=== PATIENT | female | born 1945 | race Caucasian/White ===

== ENCOUNTER 2017-06-29 11:53 | Outpatient (CLI) | payer MEDICARE, OTHER ==
--- NOTE | 2017-06-29 14:21 | MMO ---
BILATERAL SCREENING MAMMOGRAM: INDICATION: Annual exam. COMPARISON: Previous exam dated 06/08/16 and 04/11/13. FINDINGS: The interpretation of this exam was assisted with computer-aided detection. The breast parenchyma is heterogeneously dense. There are benign-appearing calcifications seen within both breasts. No new suspicious mass, cluster of microcalcifications, or area of architectural distortion is eviden t. IMPRESSION: BI-RADS category 2 - benign. Recommend routine annual mammographic screening. POS: [facility]
== END 2017-06-29 11:54 | disposition home or self-care (01) ==
LOC: SCSMAMMO 11:53
PROVIDERS: ATTEND Obstetrics & Gynecology
DX: Z12.31 Encounter for screening mammogram for malignant neoplasm of breast (principal)
CPT/HCPCS: 77067; G0202

== ENCOUNTER 2017-09-20 09:13 | Outpatient (CLI) | payer MEDICARE ==
--- NOTE | 2017-09-20 12:52 | MRI ---
CERVICAL SPINE MRI WITHOUT CONTRAST: 09/20/2017 HISTORY: Neck pain radiating down the right shoulder. History of cervical spine fusion. COMPARISON: None available. TECHNIQUE: Multiplanar, multisequence MR imaging of the cervical spine is provided without contrast. FINDINGS: Anterior diskectomy and fusion hardware is present at the C5-C6 level. The sagittal STIR imaging demonstrates no focal area of osseous marrow edema. C2-C3: Tiny central disk protrusion with no associated central canal stenosis. No neural foraminal stenosis is noted on either side. C3-C4: There is disk space narrowing, disk desiccation, and mild disk bulge, with no significant jeremy tral canal stenosis. There is mild facet hypertrophy on the left with no significant neural foramina l stenosis on either side. C4-C5: There is disk space narrowing, disk desiccation, and mild disk bulge, with no significant jeremy tral canal stenosis. Artifact from hardware slightly limits assessment of the neural foramina. No s ignificant neural foraminal stenosis is noted on the right. There is questionable mild left neural f oraminal stenosis on the basis of uncovertebral osteophyte formation. C5-C6: Facet and uncovertebral osteophyte formation on the left causing a mild to moderate degree of left neural foraminal stenosis. No significant central canal or right neural foraminal stenosis. C6-C7: There disk space narrowing and mild anterior osteophyte formation with disk desiccation and m ild disk bulge. No significant central canal stenosis. Mild left neural foraminal stenosis is noted on the basis of facet and uncovertebral osteophyte formation. No significant right neural foraminal stenosis. C7-T1: No significant central canal or neural foraminal stenosis. No focal area of abnormal signal intensity identified within the cervical cord. IMPRESSION: Postoperative and degenerative changes within the cervical spine, as above. POS: OFF
== END 2017-09-20 09:14 | disposition home or self-care (01) ==
LOC: SCSMRI 09:13
PROVIDERS: ATTEND Anesthesiology Pain Medicine
DX: M47.22 Other spondylosis with radiculopathy, cervical region (principal); Z98.890 Other specified postprocedural states
CPT/HCPCS: 72141

== ENCOUNTER 2017-10-18 09:04 | Outpatient (CLI) | payer MEDICARE ==
--- NOTE | 2017-10-19 10:12 | PRG ---
DATE OF SERVICE: 10/19/2017 RENAL MEDICINE SUBJECTIVE: The patient has no chest pain, shortness of breath. She is wanting to go home. Yesterday, spironolactone was placed on hold due to the worsening renal function. She was empiricall y given volume, but this was stopped due to some swelling of the hands. Her creatinine has stabilize d today. No complaints of chest pain or shortness of breath. PHYSICAL EXAMINATION: VITAL SIGNS: Blood pressure 180/83 - before meds, heart rate 83, respiratory rate 22, temperature 97 .7, pulse ox 94%. GENERAL: Awake, alert, sitting comfortable. SKIN: Adequate turgor. HEENT: Slightly pale conjunctivae, anicteric sclerae. NECK: No neck mass, no carotid bruits, no JVD. CHEST: No deformities. LUNGS: Clear breath sounds. HEART: Normal sinus rhythm. No murmur, no gallops, no rubs. ABDOMEN: Globular, soft, nontender, no masses. EXTREMITIES: No edema, no deformities. MEDICATIONS: Medications of 10/19/2017 reviewed. LABORATORY DATA: Laboratories of 10/19/3017; hemoglobin 7.6, potassium 4.1, BUN 46, creatinine 2.44. ASSESSMENT AND PLAN: 1. Acute kidney injury/chronic renal failure, stabilizing renal function. Again, there is a prerena l component. I had a long discussion with the patient and her daughter regarding increasing p.o. int liz. 2. Anemia. Continue weekly Epogen. We will set up Hematology appointment for Procrit check with [facility] patient. 3. Hypertension. Continue current blood pressure meds. If renal function continues to remain stabl e, we will reintroduce spironolactone as an outpatient. From renal point of view, she can be discharged. We will notify PCP. The patient to follow up at [facility].
--- NOTE | 2017-10-19 10:45 | MRI ---
MRI LUMBAR SPINE WITH AND WITHOUT CONTRAST: Date: 10/18/17 HISTORY: Post laminectomy syndrome. COMPARISON: 03/05/07. TECHNIQUE: MRI lumbar spine is performed with and without intravenous Gadolinium administration. Multisequential , multiplanar imaging is performed. FINDINGS: Appropriate T1 marrow signal intensity of the lumbar vertebra. Lumbar spine vertebral body height is maintained. There is no fracture. No significant STIR hyperintensity to suggest edema or ligamentous injury. There is no evidence of abnormal enhancement with regards to the vertebral bodies. No abnorma l enhancement in the thecal sac. Conus medullaris terminates at the inferior aspect of L1. T2 hyperintensities in the left and right renal pelvis may represent small parapelvic cysts. T12-L1: No significant central canal stenosis or foraminal narrowing. L1-L2: Adequate disc hydration. No significant central canal stenosis or foraminal narrowing. L2-L3: Adequate disc hydration. No significant central canal stenosis or foraminal narrowing. L3-L4: Adequate disc hydration. No significant central canal stenosis or foraminal narrowing. L4-L5: Desiccation with mild loss of disc space height. No high grade central canal stenosis. No high grade foraminal narrowing. L5-S1: Desiccation with moderate loss of disc space height. Minimal central disc bulge. No high grade centra l canal stenosis. No high grade foraminal narrowing. Left hemilaminectomy defect is identified. Minim al scar tissues in the postcontrast changes. There is evidence of enhancing scar tissue in the left s ubarticular zone encompassing the traversing left S1 nerve root. IMPRESSION: 1. Postsurgical changes as above. Enhancing scar tissue in the left subarticular zone at L5-S1. 2. No high grade central canal stenosis or high grade foraminal narrowing. POS: [facility]
== END 2017-10-18 09:05 | disposition home or self-care (01) ==
LOC: SCSMRI 09:04
PROVIDERS: ATTEND Anesthesiology Pain Medicine
DX: M96.1 Postlaminectomy syndrome, not elsewhere classified (principal); Z98.890 Other specified postprocedural states
CPT/HCPCS: 72158; 82565

== ENCOUNTER 2018-02-13 10:02 | Inpatient (IN) | payer MEDICARE ==
[2018-02-13] MEDS ORDERED: Sodium Chloride 0.9% 100 ML ONE (10:40)
[2018-02-13] MEDS ORDERED: cefTRIAXone\\ROCEPHIN 2 GM VIAL ONE (10:40)
[2018-02-13 10:45] LABS: Hemoglobin 14.4 g/dL (12.0-16.0); Mean Corpuscular HGB CONC 33.7 g/dL (32.0-36.0); Mean Corpuscular Hemoglobin 29.2 pg (27.0-31.0); Mean Corpuscular Volume 86.8 fL (78.0-98.0); Mean Platelet Volume 7.4 fL (7.4-10.4); Platelet Count 178 thou/uL (130-400); RBC Distribution Width 11.5 % (11.5-14.5); Red Blood Cell (RBC) Count 4.93 mill/uL (4.20-5.40); White Blood Cell (WBC) Count 9.2 thou/uL (4.8-10.8)
--- NOTE | 2018-02-13 10:57 | RAD ---
CHEST 1 VIEW PORTABLE: HISTORY: A 72-year-old female with a history of urinary tract infection 10 days ago on antibiotics with vomiti ng and body aches which started yesterday. COMPARISON: 06/01/03. FINDINGS: Less than optimal inspiration with some bilateral vascular crowding with slight blunting in the costo phrenic angles and increased markings in the bases which may only be related to the decreased inspira tion, although could represent some minimal early bibasilar subsegmental atelectasis and/or atypical pneumonitis and possible small pleural effusions. Correlate clinically. Consider short-term followu p study with upright PA and lateral whenever the patient can undergo that study. IMPRESSION: Poor inspiration with minimal blunting in the costophrenic angles and increased markings in the bases , possibly just poor inspiratory effort versus mild or early bibasilar subsegmental atelectasis and/o r atypical pneumonitis with small pleural effusions. POS: [facility]
[2018-02-13 10:58] LABS: ALT (SGPT) 401 U/L (8-55); AST (SGOT) 475 U/L (5-34); Albumin 4.5 g/dL (3.4-4.8); Alkaline Phosphatase 94 U/L (40-150); Anion Gap 17 mmol/L (10-20); BUN (Urea Nitrogen) 18 mg/dL (9.8-20.1); Bilirubin, Total 1.1 mg/dL (0.2-1.2); Calc. Creatinine Clearance 0 mL/min (70-130); Calcium 9.2 mg/dL (7.8-10.44); Carbon Dioxide 24 mmol/L (23-31); Chloride 96 mmol/L (98-107); Estimated GFR-MDRD 30; Globulin 2.5 g/dL (2.4-3.5); Glucose 148 mg/dL (83-110); Potassium 3.2 mmol/L (3.5-5.1); Sodium 134 mmol/L (136-145)
[2018-02-13 11:14] LABS: Band 35 % (5-11); Lymphocytes 1 % (21-51); MDiff Complete? YES; Metamyelocyte 2 % (0-0); Monocytes 3 % (0-10); Neutrophil 57 % (42-75); PLT Morphology Comment Appears Adequate; RBC Morphology Normal; Reactive Lymphocytes 2 % (0-10); Vacuoles SLIGHT
--- NOTE | 2018-02-13 11:17 | CT ---
CT ABDOMEN AND PELVIS WITHOUT CONTRAST STONE PROTOCOL: HISTORY: Fever. Urinary tract infection. COMPARISON: None. FINDINGS: Mild atelectatic changes in the lung bases. No pericardial effusion. Prior cholecystectomy. There is a 2 mm calculus superior pole right kidney. A 2 mm calculus inferio r pole right kidney. Punctate calculus interpolar left kidney. No distal ureteral calculi are prese nt. No hydroureteral nephrosis. No perinephric stranding. The noncontrast evaluation of the liver and spleen are unremarkable. No dilated loops of large or sm all bowel. Moderate diverticular disease of sigmoid colon without active inflammation. There appears to be pelvic floor prolapse. Moderate facet arthrosis of the lower lumbar spine. Mode rate degenerative disease at L5-S1. IMPRESSION: 1. Bilateral nonobstructing renal calculi. No evidence of obstructive uropathy. No secondary evide nce for recently passed stone. 2. No acute inflammatory process in the abdomen or pelvis. 3. Moderate diverticular disease of the sigmoid colon without active inflammation. 4. Chronic pelvic floor prolapse. POS: [facility]
[2018-02-13 11:25] LABS: CKMB 0.3 ng/mL (0-6.6); Troponin I Less than 0.010 ng/mL (< 0.028)
[2018-02-13] MEDS ORDERED: Acetaminophen 500 MG TAB ONE (11:25)
[2018-02-13 11:38] LABS: Bilirubin Negative (Negative); Blood, Urine Trace (Negative); Glucose, Urine (Dipstick) Negative (Negative); Nitrite Negative (Negative); Urobilinogen 0.2 mg/dL (0.2-1.0)
[2018-02-13 11:41] LABS: Clarity Hazy (Clear)
[2018-02-13 11:42] LABS: Leukocyte Trace (Negative); Protein, Urine (Dipstick) Negative (Neg-Trace); Specific Gravity, Urine 1.021 (1.002-1.036)
[2018-02-13] MEDS ORDERED: SODIUM CHLORIDE 0.9% IVPB SCH (11:45)
[2018-02-13] MEDS ORDERED: VANCOMYCIN HCL IVPB SCH (11:45)
[2018-02-13 11:57] LABS: Bacteria/HPF None Seen HPF (None Seen); Crystals/HPF 1+ AMORPH PHOS HPF (Negative); Hyaline Casts/LPF 4-6 HYALINE CAST LPF (0-3 Hyaline); RBC/HPF 0-3 HPF (0-3); Squamous Epithelial 0-3 HPF (0-3); Transitional Epithelial 0-3 HPF (0-3)
[2018-02-13] MEDS ORDERED: Vancomycin HCl 750 GM in Sodium Chloride 0.9% 250 ML 250 ML IVPB SCH ×2 (12:00→12:15)
[2018-02-13] MEDS ORDERED: Vancomycin HCl 750 MG in Sodium Chloride 0.9% 250 ML 250 ML IVPB SCH ×3 (12:15→15:30)
[2018-02-13] MEDS ORDERED: Bisacodyl 5 MG TAB PO PRN (13:24)
[2018-02-13] MEDS ORDERED: Acetaminophen 650 MG Suppository PR PRN (13:24)
--- NOTE | 2018-02-13 13:44 | HP ---
PRIMARY CARE PHYSICIAN: Dr. Sanjeev Ashby CHIEF COMPLAINT: Feeling unwell. HISTORY OF PRESENT ILLNESS: Ms. Chen is a pleasant 72-year-old lady who was seen at [facility] on 02/13/2018. Her mother approximately 4 weeks ago. Three weeks ago, she developed dysuria. She has been maynor ing Uribel since then. She continued to have dysuria. One week ago, she had urine cultures done. Y esterday, she was contacted by her primary care provider's office and advised to start Macrobid. She started Macrobid yesterday morning. Yesterday evening, she vomited twice. She is unsure if the Mac robid did not come out. She also had diarrhea 2 days ago, but none since then. Last night, she felt feverish as well as had chills, vomited as described earlier and felt generalize d weakness. She reports having body aches all over. REVIEW OF SYSTEMS: All other systems reviewed and found to be negative. PAST MEDICAL HISTORY: Nephrolithiasis, hypothyroidism, dyslipidemia and neuropathy. PAST SURGICAL HISTORY: Cholecystectomy, hysterectomy, and surgery of cervical and lumbar spine. PSYCHIATRIC HISTORY: Anxiety and depression. FAMILY HISTORY: Significant for heart disease in both parents. SOCIAL HISTORY: No history of tobacco use, alcohol use or recreational drug use. CODE STATUS: I discussed her code status. She is FULL CODE. ALLERGIES: CLINDAMYCIN, CODEINE, ERYTHROMYCIN, METRONIDAZOLE, MORPHINE and PENICILLIN. Her allergic reaction to penicillin is a rash. CURRENT MEDICATIONS: Atorvastatin 40 mg daily, clonazepam 0.75 mg 3 times a day, gabapentin 300 mg a t bedtime, hydrochlorothiazide 25 mg daily, omeprazole 40 mg daily, Synthroid 50 mcg daily, duloxetin e 60 mg daily. PHYSICAL EXAMINATION: GENERAL: Ms. Chen is sleepy, but arousable, appears tired. VITAL SIGNS: Blood pressure is 93/42, pulse 93, respiratory rate 23, and oxygen saturation 99% on 2 liters of oxygen. She was tachycardic earlier, with a pulse of 103. T-max in the emergency room is 101.5. EYES: No scleral icterus. No conjunctival pallor. ENT: Dry mucosal membranes, no oropharyngeal erythema or exudates. NECK: Supple, nontender. Trachea is midline. RESPIRATORY: Accessory muscles of breathing are not active. Chest wall movements are symmetric bila terally. LUNGS: Clear to auscultation without wheeze, rhonchi or crepitations. CARDIOVASCULAR: S1 and S2 are heard, regular. Peripheral pulses palpable. No carotid bruit, no per icardial rub. ABDOMEN: Soft, nontender, bowel sounds are heard, no hepatomegaly, no splenomegaly. NEUROLOGIC: Cranial nerves II-XII intact. Deep tendon reflexes 2+. MUSCULOSKELETAL: Power is 5/5 in all 4 extremities. SKIN: No rashes or subcutaneous nodules. LYMPHATIC: No cervical lymphadenopathy. PSYCHIATRIC: Normal mood, normal affect, the patient is oriented to person, place and time. DATABASE: Ms. Chen labs and investigations were reviewed. I reviewed her electrocardiogram, wh ich shows normal sinus rhythm, no ST changes to suggest an acute coronary syndrome. I also reviewed her chest x-ray, which did not show any pulmonary infiltrates. She has normal white count, elevated band neutrophils of 35%, normal hemoglobin, normal platelet coun t, decreased sodium of 134, decreased potassium of 3.2, elevated creatinine of 1.69, last known creat inine 0.80 on 11/08/2017, elevated lactic acid level of 6.3, elevated AST of 475, elevated ALT of 401 , normal total bilirubin, normal alkaline phosphatase, normal troponin I and a urinalysis that is pos itive for ketones, blood, trace leukocyte esterase, and 4-6 hyaline casts. Urine color is green. I obtained a urine culture and sensitivity report from her primary care provider. It is showing Ente rococcus faecalis that is of intermediate sensitivity to ciprofloxacin, sensitive to levofloxacin, li nezolid, nitrofurantoin, penicillin, tetracycline and vancomycin. ASSESSMENT AND PLAN: Ms. Chen is a pleasant 72-year-old lady who was seen at [facility] on 02/13/2018. Her problem list includes: 1. Severe sepsis. Ms. Chen is presenting with severe sepsis based on tachycardia, fever, bande ha, suspected source of infection in the urine and acute renal insufficiency. She will be admitted to the hospital for further management including intravenous hydration and antibiotics. 2. Urinary tract infection. The patient was started on nitrofurantoin at home, but has been unable to tolerate it secondary to vomiting. It is unclear if a urinary tract infection is only contributor to her sepsis. The patient will be started on vancomycin and meropenem. We will await urine and bl ood cultures. 3. Hypokalemia: We will replace potassium. 4. Hyponatremia: Mild, likely asymptomatic. 5. Acute kidney injury: Hydrate patient. Recheck creatinine level. 6. Abnormal liver function test: Isolated transaminitis, most likely secondary to rhabdomyolysis, g iven her history of bodyaches. We will check CK level. If CK is normal, will check abdominal ultras ound. Many thanks for allowing me to participate in your patient's care. Please feel free to contact me wi th any questions or concerns. LEVEL OF RISK: High. LEVEL OF COMPLEXITY: High.
[2018-02-13 14:52] VITALS: BMI 21.5
[2018-02-13 15:10] LABS: Lactic Acid 4.9 mmol/L (0.5-2.2)
[2018-02-13] MEDS ORDERED: Meropenem 1 GM in Sodium Chloride 0.9% 100 ML IVPB SCH (16:00)
[2018-02-13] MEDS: NS 0.9% w/ 20 MEQ KCL 1,000 ML/1,000 ML BAG IV SCH ×2 (16:20→23:49)
[2018-02-13] MEDS ORDERED: Albumin 5% 250 ML ONE (17:35)
[2018-02-13] MEDS: Hydrocortisone Sod Succ/PF 100 mg/2 ml Vial IVP SCH ×2 (17:44→23:49)
[2018-02-13] MEDS: Acetaminophen 325 MG TAB PO PRN (19:19)
[2018-02-13] MEDS ORDERED: Famotidine 20 MG TAB PO SCH (21:30)
[2018-02-13] MEDS ORDERED: Gabapentin 300 MG CAP PO SCH (21:30)
[2018-02-13] MEDS ORDERED: clonazePAM 0.5 MG TAB PO SCH (21:30)
[2018-02-14] MEDS: MEROPENEM 1 GM/50 ML 1 GM in Premix Bag 1 BAG IVPB SCH ×4 (00:15→23:27)
--- NOTE | 2018-02-14 02:53 | CON ---
DATE OF CONSULTATION: 02/13/2018 HISTORY OF PRESENT ILLNESS: A 72-year-old female with septic hypotension probably from UTI. Her hus band at the bedside along with the patient, who states that for at least 2 weeks she has been sick wi th dysuria and burning sensation; however, over the last 48 hours, condition got worse with abdominal pain, nausea, vomiting, loose stools, unable to walk. Temperature was markedly elevated. She went to see her primary care physician, apparently was told s he had E. coli and was given Macrobid. Unclear whether she will tolerate the Macrobid. In the ER, she has been hypotensive and was given multiple antibiotics in the ER including gentamicin , vancomycin, Rocephin, and now admitting doctor has prescribed meropenem and vancomycin. She remains hypotensive with a systolic of 84. She is very weak. She says she is still nauseated. Denies any coughing, chest pain, shortness of breath. She has never smoked. No prior history of TB, pneumonia, or bronchial asthma. PAST MEDICAL HISTORY: Pertinent otherwise for renal stones, some form of neuropathy, chronic pain, h ypothyroidism, hyperlipidemia. PAST SURGICAL HISTORY: Cervical surgery done in the past, cholecystectomy, hysterectomy. MEDICATIONS: Medicine from home includes duloxetine 40, gabapentin 600, Lipitor 40, Imitrex 100, Syn throid 50, HCTZ 25, Klonopin 0.5. ALLERGIES: Multiple, CODEINE, MORPHINE, CLINDAMYCIN, FLAGYL, PENICILLIN. SOCIAL HISTORY: She is a schoolteacher for 40 years. No tobacco or alcohol. REVIEW OF SYSTEMS: Otherwise, 10-point negative exam is noted. PHYSICAL EXAMINATION: VITAL SIGNS: Temperature is 99 at MICU, respirations 18, , pulse 92, blood pressure 86/60. CHEST: Minimal crackles without any wheezing. CARDIAC: Normal S1, S2. No gallops. ABDOMEN: Soft. EXTREMITIES: No edema. NEUROLOGIC: She is appropriate. LABORATORY DATA: Creatinine 1.6, was normal in the past. Lactic acid is 6.3. Sodium 134, potassium 3.2. White count , platelet count 178,000. IMPRESSION: 1. Sepsis syndrome, probably urinary tract infection. CAT scan showing presence of diverticular dis ease and nonobstructive renal calculi. 2. Renal failure over the last 3 months, probably prerenal. 3. Hypothyroidism. 4. Chronic pain. PLAN: I agree with meropenem and vancomycin adjusted for renal failure. I have added vitamin C, thi amine, and stress dose of steroids for her sepsis syndrome. Additional IV fluids. We will follow while in the MICU. This consultation note of 70 minutes, of which 50% in direct patient care.
[2018-02-14] MEDS: Hydrocortisone Sod Succ/PF 100 mg/2 ml Vial IVP SCH ×4 (05:32→23:27)
[2018-02-14 06:35] LABS: #Lymphocytes 0.2 thou/uL (1.20-3.40); #Neutrophils 2.9 thou/uL (1.40-6.50); %Eosinophils 0.6 % (0.0-10.0); %Lymphocytes 6.2 % (21.0-51.0); %Monocytes 1.4 % (0.0-10.0); %Neutrophils 91.8 % (42.0-75.0); Hemoglobin 10.5 g/dL (12.0-16.0); Mean Corpuscular HGB CONC 34.5 g/dL (32.0-36.0); Mean Corpuscular Hemoglobin 29.8 pg (27.0-31.0); Mean Corpuscular Volume 86.4 fL (78.0-98.0); Mean Platelet Volume 7.7 fL (7.4-10.4); PLT Morphology Comment Appears Decreased; Platelet Count 105 thou/uL (130-400); RBC Distribution Width 11.4 % (11.5-14.5); Red Blood Cell (RBC) Count 3.52 mill/uL (4.20-5.40); White Blood Cell (WBC) Count 3.2 thou/uL (4.8-10.8)
[2018-02-14 06:49] LABS: ALT (SGPT) 671 U/L (8-55); AST (SGOT) 584 U/L (5-34); Albumin 3.3 g/dL (3.4-4.8); Alkaline Phosphatase 126 U/L (40-150); Anion Gap 9 mmol/L (10-20); BUN (Urea Nitrogen) 21 mg/dL (9.8-20.1); Bilirubin, Total 0.9 mg/dL (0.2-1.2); Calc. Creatinine Clearance 49 mL/min (70-130); Calcium 6.6 mg/dL (7.8-10.44); Carbon Dioxide 25 mmol/L (23-31); Chloride 110 mmol/L (98-107); Estimated GFR-MDRD 57; Globulin 1.4 g/dL (2.4-3.5); Glucose 178 mg/dL (83-110); Magnesium 1.7 mg/dL (1.6-2.6); Phosphorus 1.9 mg/dL (2.3-4.7); Potassium 3.6 mmol/L (3.5-5.1); Protein, Total 4.7 g/dL (6.0-8.3); Sodium 140 mmol/L (136-145)
[2018-02-14] MEDS: Enoxaparin Sodium 30 MG/0.3 ML SYRINGE SC SCH (08:29)
[2018-02-14] MEDS: Famotidine 20 MG TAB PO SCH ×3 (08:30→20:38)
--- NOTE | 2018-02-14 08:57 | PRG ---
DATE OF SERVICE: 02/14/2018 This morning the patient is doing better. PHYSICAL EXAMINATION: VITAL SIGNS: Blood pressure has improved 122/60, sats 100% on room air, respirations 18, temperatur e 98. She is weak. CHEST: Chest reveals decreased breath sounds, no wheezing. CARDIAC: Normal S1, S2. No gallops. ABDOMEN: Soft, no masses. LABORATORY: Platelet count is 105. White count 3000, H&H 10 and 30. Urinary function has resolved . Lactic acid is 4.9, AST is 584. Cortisol level was 24. Bilirubin is normal. IMPRESSION: 1. Sepsis syndrome, probably urinary tract infection. 2. Hypertension, improved. 3. Diverticular disease. 4. Renal failure, resolved. 5. Abnormal liver function tests. PLAN: Sepsis protocol, steroids and vitamin C, B12 on board. Meropenem and vancomycin, adjust for r enal failure. I will follow. PT and supportive care.
[2018-02-14] MEDS: K-Phos Neutral 250 MG TAB PO SCH ×3 (09:45→17:03)
[2018-02-14] MEDS: NS 0.9% w/ 20 MEQ KCL 1,000 ML/1,000 ML BAG IV SCH ×2 (09:48→20:34)
[2018-02-14] MEDS: Vancomycin HCl 750 MG in Sodium Chloride 0.9% 250 ML 250 ML IVPB SCH (11:47)
[2018-02-14] MEDS ORDERED: Vancomycin HCl 750 MG in Sodium Chloride 0.9% 250 ML 250 ML IVPB SCH (12:00)
[2018-02-14] MEDS: Acetaminophen 325 MG TAB PO PRN ×2 (13:37→22:18)
[2018-02-14] MEDS ORDERED: Lidocaine 2% Jelly 5 ML TUBE TOP PRN (18:45)
[2018-02-14] MEDS ORDERED: Dextrose 50% Abboject 50 ML SYRINGE SLOW IVP PRN (18:48)
[2018-02-14] MEDS ORDERED: Dextrose 5% in Water 1,000 ML IV PRN (18:48)
[2018-02-14] MEDS ORDERED: HumaLOG 300 UNITS/3 ML VIAL SC PRN (18:48)
[2018-02-14] MEDS: Gabapentin 300 MG CAP PO SCH (20:34)
[2018-02-14] MEDS: clonazePAM 0.5 MG TAB PO SCH (20:36)
[2018-02-14] MEDS: Loperamide HCl 2 MG CAP PO PRN (22:18)
--- NOTE | 2018-02-14 23:43 | PDOC.PN ---
- Subjective Encounter Start Date: 02/14/18 Encounter Start Time: 17:00 Subjective: nsg notes rev, danielle ovn, overall feels significantly better. at -: bedside. endorses persistent diarrhea, worse with oral intake. wants -: her home regimen restarted. - Objective Vital Signs & Weight: Vital Signs (12 hours) Temp Pulse Pulse Pulse Resp BP BP 02/14/18 20:00 97.6 F 74 23 H 02/14/18 19:21 97.6 F 74 23 H 02/14/18 16:36 97.7 F 84 20 02/14/18 15:30 71 76 130/59 L 132/50 L 02/14/18 12:03 98.3 F 75 20 BP Pulse Ox 02/14/18 20:00 99 02/14/18 19:21 120/51 L 99 02/14/18 16:36 120/51 L 98 02/14/18 15:30 02/14/18 12:03 101/49 L 95 Weight Weight 127 lb I&O: 02/13/18 02/14/18 02/15/18 06:59 06:59 06:59 Intake Total 1750 1364 Output Total 800 700 Balance 950 664 Result Diagrams: 02/14/18 05:51 02/14/18 05:51 Additional Labs: Accuchecks 02/14/18 20:30 POC Glucose 151 H Phys Exam - Physical Examination Constitutional: NAD seated on the edge of the bed HEENT: PERRLA, moist MMs pale Respiratory: no wheezing, no rales, no rhonchi, clear to auscultation bilateral no conversational dyspnea Cardiovascular: RRR, no significant murmur, no rub Gastrointestinal: soft, non-tender, positive bowel sounds Musculoskeletal: pulses present Neurological: moves all 4 limbs Psychiatric: normal affect, A&O x 3 Dx/Plan - Plan cont current plan of care, plan discussed w/ family, continue antibiotics, out of bed/ambulate * severe sepsis * suspected secondary to UTI - pt had a positve UCx for E Coli o/p with her PCP and was initially started on macrobid * continue with empiric abx including coverage of potential ESBL, pending cx - did discuss with pt and her family initial cx results typically 48-72 hr may become available * stress dose steroids * apprec critical care c/s UTI * see above. pt with recurrent hx of UTI and would her o/p urologist notified * pt states she is on hctz to aid with prevention of renal stone formation ( has personl hx of frequent renal stone formation) - ok to resume this as long as SBP tolerates diarrhea * was present before with vomiting which pt attributed to her macrobid abx * currently w/o vomiting, only diarrhea * check for infectious process, no immodium until results available - this was d/w pt and her * supportive IVF as needed anxiety/ insomnia * resume home gabapentin and clonazepam as BP allows hypothyroidism * resume home regimen diet: as ulisses activity: as ulisses dvt ppx Review of Systems - Medications/Allergies Allergies/Adverse Reactions: Allergies Allergy/AdvReac Type Severity Reaction Status Date / Time codeine Allergy Mild Nausea Verified 02/13/18 14:35 morphine Allergy Mild Nausea Verified 02/13/18 14:35 clindamycin HCl Allergy Verified 02/13/18 14:35 [From Cleocin] clindamycin phosphate Allergy Verified 02/13/18 14:35 [From Cleocin] metronidazole [From Flagyl] Allergy Verified 02/13/18 14:35 Penicillins Allergy Verified 02/13/18 14:35 Medications: Current Medications Acetaminophen (Tylenol) 650 mg PO Q4H PRN PRN Reason: Headache/Fever or Pain Last Admin: 02/15/18 02:44 Dose: 650 mg Acetaminophen (Tylenol) 650 mg WA Q4H PRN PRN Reason: Headache/Fever or Pain Hydrocodone Bitart/Acetaminophen (Plains 7.5/325) 1 tab PO Q6H PRN PRN Reason: Pain Bisacodyl (Dulcolax) 10 mg PO DAILYPRN PRN PRN Reason: Constipation Clonazepam (Klonopin) 0.75 mg PO HS [facility] Last Admin: 02/14/18 20:36 Dose: 0.75 mg Dextrose/Water (Dextrose 50%) 25 gm SLOW IVP PRN PRN PRN Reason: Hypoglycemia Duloxetine HCl (Cymbalta) 60 mg PO DAILY [facility] Enoxaparin Sodium (Lovenox) 30 mg SC 0900 [facility] Last Admin: 02/14/18 08:29 Dose: 30 mg Famotidine (Pepcid) 20 mg PO BID [facility] Last Admin: 02/14/18 20:38 Dose: Not Given Gabapentin (Neurontin) 600 mg PO HS [facility] Last Admin: 02/14/18 20:34 Dose: 600 mg Glucagon (Glucagon) 1 mg IM PRN PRN PRN Reason: Hypoglycemia Hydrochlorothiazide (Hydrochlorothiazide) 25 mg PO DAILY [facility] Hydrocortisone Sodium Succinate (Solu-Cortef) 50 mg IVP Q6HR [facility] Stop: 02/20/18 18:01 Last Admin: 02/15/18 05:25 Dose: 50 mg Potassium Chloride/Sodium Chloride (Ns 0.9% W/ 20 Meq Kcl) 1,000 ml in 1,000 mls @ 100 mls/hr IV .Q10H [facility] Last Admin: 02/14/18 20:34 Dose: 1,000 mls Vancomycin HCl 750 mg/ Sodium (Chloride) 250 mls @ 250 mls/hr IVPB 1200 [facility] Last Admin: 02/14/18 11:47 Dose: 250 mls Ascorbic Acid 1,500 mg/ Sodium (Chloride) 53 mls @ 100 mls/hr IVPB Q6HR [facility] Last Admin: 02/15/18 05:25 Dose: 53 mls Thiamine HCl 200 mg/ Sodium (Chloride) 52 mls @ 100 mls/hr IVPB Q12HR [facility] Stop: 02/17/18 21:01 Last Admin: 02/14/18 20:37 Dose: 52 mls Meropenem 1 gm/ Device 50 mls @ 100 mls/hr IVPB 0800,1600,2359 [facility] Last Admin: 02/14/18 23:27 Dose: 50 mls Dextrose/Water (D5w) 1,000 mls @ 0 mls/hr IV .Q0M PRN; As Directed PRN Reason: Hypoglycemia Insulin Human Lispro (Humalog) 0 units SC .MILD SLIDING SCALE PRN PRN Reason: Mild Correctional Scale Levothyroxine Sodium (Synthroid) 50 mcg PO 0600 [facility] Last Admin: 02/15/18 05:25 Dose: 50 mcg Lidocaine HCl (Xylocaine 2%) 2 ml TOP BID PRN PRN Reason: Pain Loperamide HCl (Imodium) 2 mg PO PRN PRN PRN Reason: Diarrhea/Loose Stools Last Admin: 02/14/18 22:18 Dose: 2 mg Miscellaneous Medication (Pharmacy To Dose) 1 each IVPB ONE PRN PRN Reason: Pharmacy to dose Stop: 02/23/18 13:24 Pantoprazole Sodium (Protonix) 40 mg PO 2100 [facility] Last Admin: 02/14/18 20:35 Dose: 40 mg Phosphorus (Kphos Neutral) 250 mg PO TID-WM [facility] Last Admin: 02/14/18 17:03 Dose: 250 mg Sodium Chloride (Flush - Normal Saline) 10 ml IVF Q12HR [facility] Sodium Chloride (Flush - Normal Saline) 10 ml IVF PRN PRN PRN Reason: Saline Flush
[2018-02-15] MEDS: Acetaminophen 325 MG TAB PO PRN (02:44)
[2018-02-15] MEDS: Hydrocortisone Sod Succ/PF 100 mg/2 ml Vial IVP SCH ×3 (05:25→17:22)
[2018-02-15] MEDS: Levothyroxine Sodium 50 MCG TAB PO SCH (05:25)
[2018-02-15] MEDS: HYDROcodone/Acetaminophen 7.5/325 mg Tablet PO PRN ×3 (06:03→21:50)
[2018-02-15 06:20] LABS: #Lymphocytes 0.4 thou/uL (1.20-3.40); #Monocytes 0.1 thou/uL (0.11-0.59); %Basophils 0.3 % (0.0-1.0); %Eosinophils 0.2 % (0.0-10.0); %Lymphocytes 8.4 % (21.0-51.0); %Monocytes 2.7 % (0.0-10.0); %Neutrophils 88.4 % (42.0-75.0); Hemoglobin 10.2 g/dL (12.0-16.0); Mean Corpuscular HGB CONC 34.6 g/dL (32.0-36.0); Mean Corpuscular Hemoglobin 29.6 pg (27.0-31.0); Mean Corpuscular Volume 85.5 fL (78.0-98.0); Mean Platelet Volume 8.5 fL (7.4-10.4); Platelet Count 108 thou/uL (130-400); RBC Distribution Width 11.4 % (11.5-14.5); Red Blood Cell (RBC) Count 3.45 mill/uL (4.20-5.40); White Blood Cell (WBC) Count 4.5 thou/uL (4.8-10.8)
[2018-02-15 06:27] LABS: ALT (SGPT) 458 U/L (8-55); AST (SGOT) 193 U/L (5-34); Albumin 3.3 g/dL (3.4-4.8); Alkaline Phosphatase 102 U/L (40-150); Anion Gap 12 mmol/L (10-20); BUN (Urea Nitrogen) 13 mg/dL (9.8-20.1); Bilirubin, Total 0.4 mg/dL (0.2-1.2); Calc. Creatinine Clearance 68 mL/min (70-130); Calcium 7.1 mg/dL (7.8-10.44); Carbon Dioxide 21 mmol/L (23-31); Chloride 115 mmol/L (98-107); Estimated GFR-MDRD 80; Globulin 1.5 g/dL (2.4-3.5); Glucose 113 mg/dL (83-110); Magnesium 1.7 mg/dL (1.6-2.6); Protein, Total 4.8 g/dL (6.0-8.3); Sodium 145 mmol/L (136-145)
[2018-02-15 06:28] LABS: Potassium 2.9 mmol/L (3.5-5.1)
[2018-02-15] MEDS ORDERED: Potassium Chloride 40 MEQ in Premix Bag 1 BAG IVPB SCH (06:45)
[2018-02-15] MEDS: Potassium Chloride 20 MEQ in Premix Bag 1 BAG IVPB SCH ×2 (07:12→09:35)
[2018-02-15] MEDS ORDERED: Potassium Chloride 20 MEQ TAB PO SCH (08:45)
[2018-02-15] MEDS: Enoxaparin Sodium 30 MG/0.3 ML SYRINGE SC SCH (09:34)
[2018-02-15] MEDS: Hydrochlorothiazide 25 MG TAB PO SCH (09:34)
[2018-02-15] MEDS: Famotidine 20 MG TAB PO SCH ×2 (09:34→21:46)
[2018-02-15] MEDS: Loperamide HCl 2 MG CAP PO PRN (09:34)
[2018-02-15] MEDS: DULoxetine 60 MG CAP PO SCH (09:34)
[2018-02-15] MEDS: K-Phos Neutral 250 MG TAB PO SCH ×3 (09:34→16:48)
[2018-02-15] MEDS: MEROPENEM 1 GM/50 ML 1 GM in Premix Bag 1 BAG IVPB SCH ×2 (09:34→16:49)
[2018-02-15] MEDS: NS 0.9% w/ 20 MEQ KCL 1,000 ML/1,000 ML BAG IV SCH ×2 (09:35→10:11)
--- NOTE | 2018-02-15 10:08 | PRG ---
DATE OF SERVICE: 02/15/2018 This morning, she said she had some difficulty breathing, but denies any coughing or wheezing. X-ray done today shows slightly worsening left-sided infiltrate and pleural effusion, this may be non specific. Previous right-sided infiltrate is better. PHYSICAL EXAMINATION: VITAL SIGNS: Sats are 94% on 2 liters, temperature 98, blood pressure 124/52. I's and O's 3369 in, 1 80 out. CHEST: Chest revealed decreased breath sounds, no wheezing. CARDIAC: Normal S1-S2. No gallops. ABDOMEN: No masses. IMPRESSION: 1. Presumed sepsis, though all cultures are negative. 2. Urinary tract infection. 3. Diverticular disease. 4. Thrombocytopenia. 5. Renal failure, resolved. PLAN: She is on a sepsis protocol, broad-spectrum antibiotics, Thiamine, vitamin C. Probably can de crease IV fluids. I have ordered a BNP level. Continue neb treatments. May consider discontinuing vancomycin since all cultures so far negative.
--- NOTE | 2018-02-15 11:03 | RAD ---
PORTABLE UPRIGHT FRONTAL CHEST RADIOGRAPH: DATE: 02-15-18 History: Shortness of breath. Comparison: 02-13-18 FINDINGS: Cardiac silhouette is magnified by projection but stable in size. Pulmonary vasculature is within nor mal limits. There has been interval development of small left pleural effusion with mild increase in interstitial densities in the left midlung zone at the left lung base which may be related to develop ment of infectious process. Right lung is clear. Mild degenerative change is seen in the spine. No ot her interval change. IMPRESSION: Interval development of interstitial densities in the left midlung zone at the left lung base with bl unting of the left lateral costophrenic angle and patchy opacity at the left lung base. Findings may be related to interval development of infectious process. Patchy parenchymal change at the lateral le ft lung base may also be related to either pneumonitis or left pleural effusion and atelectasis. Foll ow up is recommended. POS: DAVID
[2018-02-15] MEDS: Vancomycin HCl 750 MG in Sodium Chloride 0.9% 250 ML 250 ML IVPB SCH (12:34)
[2018-02-15] MEDS ORDERED: Cepastat Lozenges 1 LOZ PO PRN (16:03)
--- NOTE | 2018-02-15 18:53 | PDOC.PN ---
- Subjective Encounter Start Date: 02/15/18 Encounter Start Time: 10:50 Pt seen for followup re: sepsis. Denies chest pain. Had a few loose stools. No nausea or vomiting. No fevers or chills. - Objective MAR Reviewed: Yes Vital Signs & Weight: Vital Signs (12 hours) Temp Pulse Resp BP Pulse Ox 02/15/18 16:00 98.7 F 86 20 128/70 96 02/15/18 15:23 85 16 02/15/18 12:00 98.2 F 91 22 H 133/55 L 97 02/15/18 09:35 94 L 02/15/18 09:30 77 16 02/15/18 08:00 98.7 F 75 20 96 02/15/18 07:00 98.7 F 75 20 124/52 L 94 L Weight Weight 133 lb I&O: 02/14/18 02/15/18 02/16/18 06:59 06:59 06:59 Intake Total 1750 3369 Output Total 800 1800 Balance 950 1569 Result Diagrams: 02/15/18 05:58 02/15/18 05:58 Additional Labs: Accuchecks 02/15/18 02/15/18 02/15/18 16:56 10:58 05:56 POC Glucose 115 H 135 H 118 H 02/14/18 20:30 POC Glucose 151 H EKG Reviewed by me: Yes (Tele: NSR) Phys Exam - Physical Examination Constitutional: NAD HEENT: moist MMs, sclera anicteric, oral pharynx no lesions, 2+ tonsils Neck: no nodes, no JVD, supple, full ROM Chris crackles Cardiovascular: RRR, no rub S1, s2 Gastrointestinal: soft, non-tender, no distention, positive bowel sounds Neurological: moves all 4 limbs Psychiatric: normal affect, A&O x 3 Dx/Plan (1) Sepsis Code(s): A41.9 - SEPSIS, UNSPECIFIED ORGANISM Status: Acute (2) UTI (urinary tract infection) Status: Acute (3) Volume overload Code(s): E87.70 - FLUID OVERLOAD, UNSPECIFIED Status: Acute Comment: administer furosemide (4) Pneumonia Code(s): J18.9 - PNEUMONIA, UNSPECIFIED ORGANISM Status: Suspected Comment: based on chest x-ray. Continue antibiotics as below, continue to monitor (5) Hypothyroidism Code(s): E03.9 - HYPOTHYROIDISM, UNSPECIFIED Status: Chronic Comment: continue synthroid (6) Dyslipidemia Code(s): E78.5 - HYPERLIPIDEMIA, UNSPECIFIED Status: Chronic Comment: continue statin - Plan continue antibiotics, out of bed/ambulate * . Review of Systems - Review of Systems Constitutional: weakness, malaise. negative: fever, chills, sweats Respiratory: negative: Cough, Shortness of Breath, SOB with Excertion, Pleuritic Pain, Wheezing Cardiovascular: negative: chest pain, palpitations, orthopnea, paroxysmal nocturnal dyspnea, edema, light headedness Gastrointestinal: Diarrhea. negative: Nausea, Vomiting, Abdominal Pain, Constipation, Melena, Hematochezia Genitourinary: negative: Dysuria, Frequency, Incontinence, Hematuria, Retention Skin: negative: Rash, Lesions, Paul, Bruising - Medications/Allergies Allergies/Adverse Reactions: Allergies Allergy/AdvReac Type Severity Reaction Status Date / Time codeine Allergy Mild Nausea Verified 02/13/18 14:35 morphine Allergy Mild Nausea Verified 02/13/18 14:35 clindamycin HCl Allergy Verified 02/13/18 14:35 [From Cleocin] clindamycin phosphate Allergy Verified 02/13/18 14:35 [From Cleocin] metronidazole [From Flagyl] Allergy Verified 02/13/18 14:35 Penicillins Allergy Verified 02/13/18 14:35 Medications: Current Medications Acetaminophen (Tylenol) 650 mg PO Q4H PRN PRN Reason: Headache/Fever or Pain Last Admin: 02/15/18 02:44 Dose: 650 mg Acetaminophen (Tylenol) 650 mg [place] Q4H PRN PRN Reason: Headache/Fever or Pain Hydrocodone Bitart/Acetaminophen ([place] 7.5/325) 1 tab PO Q6H PRN PRN Reason: Pain Last Admin: 02/15/18 12:32 Dose: 1 tab Albuterol/Ipratropium (Duoneb) 3 ml NEB [id number] NAYELY Last Admin: 02/15/18 15:23 Dose: 3 ml Bisacodyl (Dulcolax) 10 mg PO DAILYPRN PRN PRN Reason: Constipation Clonazepam (Klonopin) 0.75 mg PO HS NAYELY Last Admin: 02/14/18 20:36 Dose: 0.75 mg Dextrose/Water (Dextrose 50%) 25 gm SLOW IVP PRN PRN PRN Reason: Hypoglycemia Duloxetine HCl (Cymbalta) 60 mg PO DAILY [facility] Last Admin: 02/15/18 09:34 Dose: 60 mg Enoxaparin Sodium (Lovenox) 30 mg SC 0900 [facility] Last Admin: 02/15/18 09:34 Dose: 30 mg Famotidine (Pepcid) 20 mg PO BID [facility] Last Admin: 02/15/18 09:34 Dose: 20 mg Gabapentin (Neurontin) 600 mg PO HS [facility] Last Admin: 02/14/18 20:34 Dose: 600 mg Glucagon (Glucagon) 1 mg IM PRN PRN PRN Reason: Hypoglycemia Hydrochlorothiazide (Hydrochlorothiazide) 25 mg PO DAILY [facility] Last Admin: 02/15/18 09:34 Dose: 25 mg Hydrocortisone Sodium Succinate (Solu-Cortef) 50 mg IVP Q6HR [facility] Stop: 02/20/18 18:01 Last Admin: 02/15/18 17:22 Dose: 50 mg Vancomycin HCl 750 mg/ Sodium (Chloride) 250 mls @ 250 mls/hr IVPB 1200 [facility] Last Admin: 02/15/18 12:34 Dose: 250 mls Ascorbic Acid 1,500 mg/ Sodium (Chloride) 53 mls @ 100 mls/hr IVPB Q6HR [facility] Stop: 02/17/18 12:32 Last Admin: 02/15/18 17:22 Dose: 53 mls Thiamine HCl 200 mg/ Sodium (Chloride) 52 mls @ 100 mls/hr IVPB Q12HR [facility] Stop: 02/17/18 21:01 Last Admin: 02/15/18 09:35 Dose: 52 mls Meropenem 1 gm/ Device 50 mls @ 100 mls/hr IVPB 0800,1600,2359 [facility] Last Admin: 02/15/18 16:49 Dose: 50 mls Dextrose/Water (D5w) 1,000 mls @ 0 mls/hr IV .Q0M PRN; As Directed PRN Reason: Hypoglycemia Potassium Chloride/Sodium Chloride (Ns 0.9% W/ 20 Meq Kcl) 1,000 ml in 1,000 mls @ 50 mls/hr IV .Q20H [facility] Last Admin: 02/15/18 10:11 Dose: Not Given Insulin Human Lispro (Humalog) 0 units SC .MILD SLIDING SCALE PRN PRN Reason: Mild Correctional Scale Levothyroxine Sodium (Synthroid) 50 mcg PO 0600 [facility] Last Admin: 02/15/18 05:25 Dose: 50 mcg Lidocaine HCl (Xylocaine 2%) 2 ml TOP BID PRN PRN Reason: Pain Loperamide HCl (Imodium) 2 mg PO PRN PRN PRN Reason: Diarrhea/Loose Stools Last Admin: 02/15/18 09:34 Dose: 2 mg Miscellaneous Medication (Pharmacy To Dose) 1 each IVPB ONE PRN PRN Reason: Pharmacy to dose Stop: 02/23/18 13:24 Mometasone Furoate/Formoterol Fumar (Dulera 200 Mcg/5 Mcg Inhaler) 2 puff INH BID-RT [facility] Pantoprazole Sodium (Protonix) 40 mg PO 2100 [facility] Last Admin: 02/14/18 20:35 Dose: 40 mg Phosphorus (Kphos Neutral) 250 mg PO TID-WM [facility] Last Admin: 02/15/18 16:48 Dose: 250 mg Sodium Chloride (Flush - Normal Saline) 10 ml IVF Q12HR [facility] Last Admin: 02/15/18 09:35 Dose: Not Given Sodium Chloride (Flush - Normal Saline) 10 ml IVF PRN PRN PRN Reason: Saline Flush Throat Lozenges (Cepastat Lozenges) 1 phillip PO Q2H PRN PRN Reason: SORE THROAT Last Admin: 02/15/18 16:48 Dose: 1 phillip
[2018-02-15] MEDS ORDERED: Furosemide 20 MG/2 ML VIAL SLOW IVP SCH (19:15)
[2018-02-15] MEDS: Mometasone/Formoterol 120 PUFF INHALER INH SCH (19:36)
[2018-02-15] MEDS: Gabapentin 300 MG CAP PO SCH (21:45)
[2018-02-15] MEDS: clonazePAM 0.5 MG TAB PO SCH (21:50)
[2018-02-16] MEDS: MEROPENEM 1 GM/50 ML 1 GM in Premix Bag 1 BAG IVPB SCH ×3 (00:55→16:26)
[2018-02-16] MEDS: Hydrocortisone Sod Succ/PF 100 mg/2 ml Vial IVP SCH ×5 (00:55→23:46)
[2018-02-16] MEDS: NS 0.9% w/ 20 MEQ KCL 1,000 ML/1,000 ML BAG IV SCH (05:29)
[2018-02-16] MEDS: Levothyroxine Sodium 50 MCG TAB PO SCH (05:30)
[2018-02-16 06:20] LABS: #Lymphocytes 1.1 thou/uL (1.20-3.40); #Monocytes 0.3 thou/uL (0.11-0.59); %Basophils 0.2 % (0.0-1.0); %Monocytes 6.3 % (0.0-10.0); %Neutrophils 73.5 % (42.0-75.0); Hemoglobin 9.9 g/dL (12.0-16.0); Mean Corpuscular Hemoglobin 29.7 pg (27.0-31.0); Mean Corpuscular Volume 84.7 fL (78.0-98.0); Platelet Count 123 thou/uL (130-400); RBC Distribution Width 11.5 % (11.5-14.5); Red Blood Cell (RBC) Count 3.33 mill/uL (4.20-5.40); White Blood Cell (WBC) Count 5.4 thou/uL (4.8-10.8)
[2018-02-16 06:21] LABS: ALT (SGPT) 333 U/L (8-55); AST (SGOT) 68 U/L (5-34); Albumin 3.4 g/dL (3.4-4.8); Alkaline Phosphatase 103 U/L (40-150); Anion Gap 10 mmol/L (10-20); BUN (Urea Nitrogen) 9 mg/dL (9.8-20.1); Bilirubin, Total 0.5 mg/dL (0.2-1.2); Calc. Creatinine Clearance 76 mL/min (70-130); Calcium 7.3 mg/dL (7.8-10.44); Carbon Dioxide 29 mmol/L (23-31); Chloride 104 mmol/L (98-107); Estimated GFR-MDRD 90; Globulin 1.7 g/dL (2.4-3.5); Glucose 82 mg/dL (83-110); Magnesium 1.6 mg/dL (1.6-2.6); Phosphorus 2.2 mg/dL (2.3-4.7); Protein, Total 5.1 g/dL (6.0-8.3); Sodium 141 mmol/L (136-145)
[2018-02-16 06:22] LABS: Potassium 2.4 mmol/L (3.5-5.1)
[2018-02-16] MEDS ORDERED: Potassium Chloride 40 MEQ in Sodium Chloride 0.9% 250 ML 250 ML IVPB SCH (07:30)
[2018-02-16] MEDS: Mometasone/Formoterol 120 PUFF INHALER INH SCH ×2 (07:40→18:44)
[2018-02-16] MEDS: K-Phos Neutral 250 MG TAB PO SCH ×3 (08:55→16:27)
[2018-02-16] MEDS: DULoxetine 60 MG CAP PO SCH (08:56)
[2018-02-16] MEDS: Enoxaparin Sodium 30 MG/0.3 ML SYRINGE SC SCH (08:56)
[2018-02-16] MEDS: Famotidine 20 MG TAB PO SCH ×2 (08:56→20:52)
[2018-02-16] MEDS: Hydrochlorothiazide 25 MG TAB PO SCH (08:56)
[2018-02-16] MEDS: Potassium Chloride 20 MEQ TAB PO SCH ×3 (10:36→17:57)
[2018-02-16] MEDS ORDERED: Calcium Gluconate 4.6 MEQ in Sodium Chloride 0.9% 100 ML IVPB SCH (11:00)
[2018-02-16] MEDS: Loperamide HCl 2 MG CAP PO PRN (11:21)
--- NOTE | 2018-02-16 11:49 | EKG ---
Test Reason : Blood Pressure : / mmHG Vent. Rate : 095 BPM Atrial Rate : 095 BPM P-R Int : 148 ms QRS Dur : 090 ms QT Int : 368 ms P-R-T Axes : 053 056 062 degrees QTc Int : 462 ms Normal sinus rhythm Normal ECG Confirmed by ZIYAD CORTES DO ([id number]), photographic editor ÁLVARO GODINEZ ([id number]) on 02/16/2018 11:48:55 AM Referred By: Confirmed By:ZIYAD CORTES DO
--- NOTE | 2018-02-16 13:15 | PRG ---
DATE OF SERVICE: 02/16/2018 SUBJECTIVE: The patient is better. She is less hypotensive. OBJECTIVE: VITAL SIGNS: Blood pressure 130/51, sats are 98% on 2 liters, respirations 18, temperature 97. CHEST: Decreased breath sounds, no wheezing. CARDIAC: Normal S1 and S2. No gallops. ABDOMEN: Soft, no masses. LABORATORY DATA: White count 5,000, hemoglobin and hematocrit 9 and 28 and platelet count 123. Elec trolytes are normal. . AST and ALT are slightly elevated. IMPRESSION: Sepsis syndrome. Blood cultures are negative. She is on a sepsis protocol. Her cultures are negative. PLAN: She can probably be transferred out of the ICU and start escalating antibiotics.
--- NOTE | 2018-02-16 16:55 | ULT ---
ABDOMINAL ULTRASOUND 02/16/18 HISTORY: Abnormal liver function tests. Patient has history of prior cholecystectomy. FINDINGS: The proximal and mid abdominal aorta are normal in caliber. The distal abdominal aorta is obscured du e to shadowing from bowel gas. The visualized portions of the IVC, visualized portions of the pancrea s, liver, spleen and bilateral kidneys demonstrate a normal sonographic appearance. The right kidney measures 10.9 cm in length and left kidney measures 9.9 cm in length. Gallbladder is not visualized compatible with patient's reported history of prior cholecystectomy. Th e common duct measures 0.9 cm in diameter related to postcholecystectomy changes. There is evidence o f small bilateral pleural effusions, greater in size on the right. IMPRESSION: 1. Bilateral pleural effusions, larger in size on the right. 2. Post cholecystectomy changes. 3. Liver has a normal sonographic appearance, and no focal hepatic lesion is seen. POS: [place]
[2018-02-16] MEDS ORDERED: Furosemide 20 MG/2 ML VIAL SLOW IVP SCH (17:45)
--- NOTE | 2018-02-16 17:48 | PDOC.PN ---
- Subjective Encounter Start Date: 02/16/18 Encounter Start Time: 17:47 Pt seen for followup re: UTI. Denies chest pain. Diarrhea improving. No fevers or chills. Shortness of breath is better. - Objective MAR Reviewed: Yes Vital Signs & Weight: Vital Signs (12 hours) Temp Pulse Resp BP Pulse Ox 02/16/18 15:12 93 L 02/16/18 15:07 98.0 F 93 16 143/63 H 89 L 02/16/18 13:09 68 16 95 02/16/18 12:00 98.1 F 86 22 H 146/47 H 93 L 02/16/18 08:00 97.9 F 78 20 96 02/16/18 07:40 72 18 95 02/16/18 07:00 97.9 F 78 20 133/55 L 96 02/16/18 06:38 98 02/16/18 06:36 70 18 98 Weight Weight 133 lb I&O: 02/15/18 02/16/18 02/17/18 06:59 06:59 06:59 Intake Total 3369 2507 927 Output Total 1800 1280 Balance 1569 1227 927 Result Diagrams: 02/16/18 05:54 02/16/18 05:54 Additional Labs: Accuchecks 02/16/18 02/16/18 02/15/18 10:33 05:31 20:22 POC Glucose 141 H 88 154 H 02/15/18 16:56 POC Glucose 115 H EKG Reviewed by me: Yes (Tele: sinus tachycardia) Phys Exam - Physical Examination Constitutional: NAD HEENT: moist MMs Neck: supple Chris crackles Cardiovascular: RRR Gastrointestinal: soft Neurological: moves all 4 limbs Psychiatric: normal affect Dx/Plan (1) UTI (urinary tract infection) Status: Acute Comment: change antibiotic to levofloxacin. Pt does not want nitrofurantoin due to vomiting. (2) Volume overload Code(s): E87.70 - FLUID OVERLOAD, UNSPECIFIED Status: Acute Comment: administer another dose of furosemide (3) Hypocalcemia Code(s): E83.51 - HYPOCALCEMIA Status: Acute Comment: replace calcium (4) Hypothyroidism Code(s): E03.9 - HYPOTHYROIDISM, UNSPECIFIED Status: Chronic Comment: continue synthroid (5) Dyslipidemia Code(s): E78.5 - HYPERLIPIDEMIA, UNSPECIFIED Status: Chronic Comment: continue statin (6) Pneumonia Code(s): J18.9 - PNEUMONIA, UNSPECIFIED ORGANISM Status: Ruled-out Comment: based on chest x-ray. (7) Sepsis Code(s): A41.9 - SEPSIS, UNSPECIFIED ORGANISM Status: Resolved - Plan plan discussed w/ family, continue antibiotics, out of bed/ambulate * . Review of Systems - Medications/Allergies Allergies/Adverse Reactions: Allergies Allergy/AdvReac Type Severity Reaction Status Date / Time codeine Allergy Mild Nausea Verified 02/13/18 14:35 morphine Allergy Mild Nausea Verified 02/13/18 14:35 clindamycin HCl Allergy Verified 02/13/18 14:35 [From Cleocin] clindamycin phosphate Allergy Verified 02/13/18 14:35 [From Cleocin] metronidazole [From Flagyl] Allergy Verified 02/13/18 14:35 Penicillins Allergy Verified 02/13/18 14:35 Medications: Current Medications Acetaminophen (Tylenol) 650 mg PO Q4H PRN PRN Reason: Headache/Fever or Pain Last Admin: 02/15/18 02:44 Dose: 650 mg Acetaminophen (Tylenol) 650 mg [place] Q4H PRN PRN Reason: Headache/Fever or Pain Hydrocodone Bitart/Acetaminophen ([place] 7.5/325) 1 tab PO Q6H PRN PRN Reason: Pain Last Admin: 02/15/18 21:50 Dose: 1 tab Albuterol/Ipratropium (Duoneb) 3 ml NEB [id number] Last Admin: 02/16/18 13:09 Dose: 3 ml Bisacodyl (Dulcolax) 10 mg PO DAILYPRN PRN PRN Reason: Constipation Clonazepam (Klonopin) 0.75 mg PO HS [facility] Last Admin: 02/15/18 21:50 Dose: 0.75 mg Dextrose/Water (Dextrose 50%) 25 gm SLOW IVP PRN PRN PRN Reason: Hypoglycemia Duloxetine HCl (Cymbalta) 60 mg PO DAILY [facility] Last Admin: 02/16/18 08:56 Dose: 60 mg Enoxaparin Sodium (Lovenox) 30 mg SC 0900 [facility] Last Admin: 02/16/18 08:56 Dose: 30 mg Famotidine (Pepcid) 20 mg PO BID [facility] Last Admin: 02/16/18 08:56 Dose: 20 mg Furosemide (Lasix) 20 mg SLOW IVP NOW [facility] Stop: 02/16/18 19:00 Gabapentin (Neurontin) 600 mg PO HS [facility] Last Admin: 02/15/18 21:45 Dose: 600 mg Glucagon (Glucagon) 1 mg IM PRN PRN PRN Reason: Hypoglycemia Hydrochlorothiazide (Hydrochlorothiazide) 25 mg PO DAILY [facility] Last Admin: 02/16/18 08:56 Dose: 25 mg Hydrocortisone Sodium Succinate (Solu-Cortef) 50 mg IVP Q6HR [facility] Stop: 02/20/18 18:01 Last Admin: 02/16/18 11:56 Dose: 50 mg Ascorbic Acid 1,500 mg/ Sodium (Chloride) 53 mls @ 100 mls/hr IVPB Q6HR [facility] Stop: 02/17/18 12:32 Last Admin: 02/16/18 11:55 Dose: 53 mls Thiamine HCl 200 mg/ Sodium (Chloride) 52 mls @ 100 mls/hr IVPB Q12HR [facility] Stop: 02/17/18 21:01 Last Admin: 02/16/18 08:51 Dose: 52 mls Dextrose/Water (D5w) 1,000 mls @ 0 mls/hr IV .Q0M PRN; As Directed PRN Reason: Hypoglycemia Insulin Human Lispro (Humalog) 0 units SC .MILD SLIDING SCALE PRN PRN Reason: Mild Correctional Scale Levofloxacin (Levaquin) 750 mg PO Q24H [facility] Levothyroxine Sodium (Synthroid) 50 mcg PO 0600 [facility] Last Admin: 02/16/18 05:30 Dose: 50 mcg Lidocaine HCl (Xylocaine 2%) 2 ml TOP BID PRN PRN Reason: Pain Loperamide HCl (Imodium) 2 mg PO PRN PRN PRN Reason: Diarrhea/Loose Stools Last Admin: 02/16/18 11:21 Dose: 2 mg Mometasone Furoate/Formoterol Fumar (Dulera 200 Mcg/5 Mcg Inhaler) 2 puff INH BID-RT [facility] Last Admin: 02/16/18 07:40 Dose: 2 puff Pantoprazole Sodium (Protonix) 40 mg PO 2100 [facility] Last Admin: 02/15/18 21:46 Dose: 40 mg Phosphorus (Kphos Neutral) 250 mg PO TID-WM [facility] Last Admin: 02/16/18 16:27 Dose: 250 mg Potassium Chloride (K-Dur) 40 meq PO Q4H [facility] Stop: 02/16/18 18:01 Last Admin: 02/16/18 15:14 Dose: 40 meq Sodium Chloride (Flush - Normal Saline) 10 ml IVF Q12HR [facility] Last Admin: 02/16/18 08:56 Dose: 10 ml Sodium Chloride (Flush - Normal Saline) 10 ml IVF PRN PRN PRN Reason: Saline Flush Throat Lozenges (Cepastat Lozenges) 1 phillip PO Q2H PRN PRN Reason: SORE THROAT Last Admin: 02/15/18 16:48 Dose: 1 phillip
[2018-02-16] MEDS: Gabapentin 300 MG CAP PO SCH (20:52)
[2018-02-16] MEDS: clonazePAM 0.5 MG TAB PO SCH (20:55)
[2018-02-17 05:22] LABS: #Lymphocytes 0.7 thou/uL (1.20-3.40); #Monocytes 0.3 thou/uL (0.11-0.59); #Neutrophils 2.8 thou/uL (1.40-6.50); %Basophils 0.2 % (0.0-1.0); %Eosinophils 0.1 % (0.0-10.0); %Lymphocytes 18.8 % (21.0-51.0); %Monocytes 6.9 % (0.0-10.0); Hemoglobin 9.7 g/dL (12.0-16.0); Mean Corpuscular HGB CONC 34.7 g/dL (32.0-36.0); Mean Corpuscular Hemoglobin 29.8 pg (27.0-31.0); Mean Corpuscular Volume 85.7 fL (78.0-98.0); Mean Platelet Volume 8.4 fL (7.4-10.4); Platelet Count 111 thou/uL (130-400); RBC Distribution Width 11.7 % (11.5-14.5); Red Blood Cell (RBC) Count 3.24 mill/uL (4.20-5.40); White Blood Cell (WBC) Count 3.8 thou/uL (4.8-10.8)
[2018-02-17 05:28] LABS: ALT (SGPT) 253 U/L (8-55); AST (SGOT) 37 U/L (5-34); Albumin 3.4 g/dL (3.4-4.8); Alkaline Phosphatase 85 U/L (40-150); Anion Gap 15 mmol/L (10-20); BUN (Urea Nitrogen) 11 mg/dL (9.8-20.1); Bilirubin, Total 0.5 mg/dL (0.2-1.2); Calc. Creatinine Clearance 81 mL/min (70-130); Calcium 7.9 mg/dL (7.8-10.44); Carbon Dioxide 31 mmol/L (23-31); Chloride 101 mmol/L (98-107); Estimated GFR-MDRD Greater than 90; Globulin 1.7 g/dL (2.4-3.5); Glucose 135 mg/dL (83-110); Magnesium 1.9 mg/dL (1.6-2.6); Protein, Total 5.1 g/dL (6.0-8.3); Sodium 144 mmol/L (136-145)
[2018-02-17 05:35] LABS: Potassium 2.6 mmol/L (3.5-5.1)
[2018-02-17] MEDS: Hydrocortisone Sod Succ/PF 100 mg/2 ml Vial IVP SCH (06:40)
[2018-02-17] MEDS: Levothyroxine Sodium 50 MCG TAB PO SCH (06:41)
[2018-02-17] MEDS: Potassium Chloride 20 MEQ TAB PO SCH ×4 (06:43→22:08)
[2018-02-17] MEDS: Mometasone/Formoterol 120 PUFF INHALER INH SCH ×2 (08:15→18:35)
[2018-02-17] MEDS: Enoxaparin Sodium 40 MG/0.4 ML SYRINGE SC SCH (10:20)
[2018-02-17] MEDS: DULoxetine 60 MG CAP PO SCH (10:21)
[2018-02-17] MEDS: Famotidine 20 MG TAB PO SCH ×2 (10:21→22:08)
[2018-02-17] MEDS: Loperamide HCl 2 MG CAP PO PRN ×2 (10:21→13:22)
[2018-02-17] MEDS: Hydrochlorothiazide 25 MG TAB PO SCH (10:21)
[2018-02-17] MEDS: K-Phos Neutral 250 MG TAB PO SCH ×3 (10:22→17:20)
[2018-02-17] MEDS ORDERED: Furosemide 20 MG/2 ML VIAL SLOW IVP SCH (10:45)
--- NOTE | 2018-02-17 14:02 | PRG ---
DATE OF SERVICE: 02/17/2018 SUBJECTIVE: This morning, she is awake, alert and responsive. OBJECTIVE: VITAL SIGNS: Blood pressure is 129/57, temperature is 98, pulse 75, respiration 20, sats 97% on room air. GENERAL: She is awake, alert, responsive, in no distress. LABORATORY DATA: White count 3000, H&H is 9 and 27, platelet count 111. Potassium 2.6. Lipase norm al. So far, all cultures that I see are negative. IMPRESSION: Hypotension, sepsis syndrome, though all cultures are negative, urinary tract infection. PLAN: She can be transferred out of the MICU. Pulmonary Critical Care will follow at a distance whe n she left the ICU.
[2018-02-17 16:40] LABS: Potassium 2.8 mmol/L (3.5-5.1)
--- NOTE | 2018-02-17 17:37 | PDOC.PN ---
- Subjective Encounter Start Date: 02/17/18 Encounter Start Time: 11:00 Pt seen for followup re: UTI. Denies chest pain. Shortness of breath is better. No nausea or vomiting. - Objective MAR Reviewed: Yes Vital Signs & Weight: Vital Signs (12 hours) Temp Pulse Resp BP Pulse Ox 02/17/18 16:00 97.6 F 61 22 H 149/63 H 96 02/17/18 13:36 96 02/17/18 13:33 80 20 96 02/17/18 11:00 98.2 F 73 20 114/60 90 L 02/17/18 08:15 74 20 97 02/17/18 08:00 98.3 F 74 20 97 02/17/18 07:00 98.3 F 76 22 H 129/57 L 90 L Weight Weight 2.215 oz I&O: 02/16/18 02/17/18 02/18/18 06:59 06:59 06:59 Intake Total 2507 1970 810 Output Total 1280 3725 800 Balance 1227 -1755 10 Result Diagrams: 02/17/18 04:20 02/17/18 16:14 EKG Reviewed by me: Yes (Tele: NSR) Phys Exam - Physical Examination Constitutional: NAD HEENT: moist MMs Neck: supple Bibasal crackles Cardiovascular: RRR Gastrointestinal: positive bowel sounds Neurological: moves all 4 limbs Psychiatric: normal affect Dx/Plan (1) UTI (urinary tract infection) Status: Acute Comment: change antibiotic to levofloxacin. Pt does not want nitrofurantoin due to vomiting. (2) Volume overload Code(s): E87.70 - FLUID OVERLOAD, UNSPECIFIED Status: Acute Comment: one- time dose of 20 mg lasix IV today (3) Hypokalemia Code(s): E87.6 - HYPOKALEMIA Status: Acute Comment: replace potassium (4) Hypothyroidism Code(s): E03.9 - HYPOTHYROIDISM, UNSPECIFIED Status: Chronic Comment: on synthroid (5) Dyslipidemia Code(s): E78.5 - HYPERLIPIDEMIA, UNSPECIFIED Status: Chronic Comment: on statin (6) Pneumonia Code(s): J18.9 - PNEUMONIA, UNSPECIFIED ORGANISM Status: Ruled-out (7) Sepsis Code(s): A41.9 - SEPSIS, UNSPECIFIED ORGANISM Status: Resolved (8) Hypocalcemia Code(s): E83.51 - HYPOCALCEMIA Status: Resolved - Plan * . Review of Systems - Medications/Allergies Allergies/Adverse Reactions: Allergies Allergy/AdvReac Type Severity Reaction Status Date / Time codeine Allergy Mild Nausea Verified 02/13/18 14:35 morphine Allergy Mild Nausea Verified 02/13/18 14:35 clindamycin HCl Allergy Verified 02/13/18 14:35 [From Cleocin] clindamycin phosphate Allergy Verified 02/13/18 14:35 [From Cleocin] metronidazole [From Flagyl] Allergy Verified 02/13/18 14:35 Penicillins Allergy Verified 02/13/18 14:35 Medications: Current Medications Acetaminophen (Tylenol) 650 mg PO Q4H PRN PRN Reason: Headache/Fever or Pain Last Admin: 02/15/18 02:44 Dose: 650 mg Acetaminophen (Tylenol) 650 mg [place] Q4H PRN PRN Reason: Headache/Fever or Pain Hydrocodone Bitart/Acetaminophen ([place] 7.5/325) 1 tab PO Q6H PRN PRN Reason: Pain Last Admin: 02/15/18 21:50 Dose: 1 tab Albuterol/Ipratropium (Duoneb) 3 ml NEB [id number] [facility] Last Admin: 02/17/18 13:33 Dose: 3 ml Bisacodyl (Dulcolax) 10 mg PO DAILYPRN PRN PRN Reason: Constipation Clonazepam (Klonopin) 0.75 mg PO HS [facility] Last Admin: 02/16/18 20:55 Dose: 0.75 mg Dextrose/Water (Dextrose 50%) 25 gm SLOW IVP PRN PRN PRN Reason: Hypoglycemia Duloxetine HCl (Cymbalta) 60 mg PO DAILY [facility] Last Admin: 02/17/18 10:21 Dose: 60 mg Enoxaparin Sodium (Lovenox) 40 mg SC 0900 [facility] Last Admin: 02/17/18 10:20 Dose: 40 mg Famotidine (Pepcid) 20 mg PO BID [facility] Last Admin: 02/17/18 10:21 Dose: 20 mg Gabapentin (Neurontin) 600 mg PO HS [facility] Last Admin: 02/16/18 20:52 Dose: 600 mg Glucagon (Glucagon) 1 mg IM PRN PRN PRN Reason: Hypoglycemia Hydrochlorothiazide (Hydrochlorothiazide) 25 mg PO DAILY [facility] Last Admin: 02/17/18 10:21 Dose: 25 mg Dextrose/Water (D5w) 1,000 mls @ 0 mls/hr IV .Q0M PRN; As Directed PRN Reason: Hypoglycemia Insulin Human Lispro (Humalog) 0 units SC .MILD SLIDING SCALE PRN PRN Reason: Mild Correctional Scale Levofloxacin (Levaquin) 750 mg PO 1800 [facility] Last Admin: 02/17/18 17:20 Dose: 750 mg Levothyroxine Sodium (Synthroid) 50 mcg PO 0600 [facility] Last Admin: 02/17/18 06:41 Dose: 50 mcg Lidocaine HCl (Xylocaine 2%) 2 ml TOP BID PRN PRN Reason: Pain Loperamide HCl (Imodium) 2 mg PO PRN PRN PRN Reason: Diarrhea/Loose Stools Last Admin: 02/17/18 13:22 Dose: 2 mg Mometasone Furoate/Formoterol Fumar (Dulera 200 Mcg/5 Mcg Inhaler) 2 puff INH BID-RT [facility] Last Admin: 02/17/18 08:15 Dose: 2 puff Pantoprazole Sodium (Protonix) 40 mg PO 2100 [facility] Last Admin: 02/16/18 20:52 Dose: 40 mg Phosphorus (Kphos Neutral) 250 mg PO TID-WM [facility] Last Admin: 02/17/18 17:20 Dose: 250 mg Potassium Chloride (K-Dur) 40 meq PO Q4HR [facility] Stop: 02/18/18 01:01 Last Admin: 02/17/18 17:20 Dose: 40 meq Sodium Chloride (Flush - Normal Saline) 10 ml IVF Q12HR [facility] Last Admin: 02/17/18 10:27 Dose: 10 ml Sodium Chloride (Flush - Normal Saline) 10 ml IVF PRN PRN PRN Reason: Saline Flush Throat Lozenges (Cepastat Lozenges) 1 phillip PO Q2H PRN PRN Reason: SORE THROAT Last Admin: 02/15/18 16:48 Dose: 1 phillip
[2018-02-17] MEDS: Gabapentin 300 MG CAP PO SCH (22:08)
[2018-02-17] MEDS: clonazePAM 0.5 MG TAB PO SCH (22:09)
[2018-02-18] MEDS: Potassium Chloride 20 MEQ TAB PO SCH (00:40)
[2018-02-18 05:22] LABS: ALT (SGPT) 176 U/L (8-55); AST (SGOT) 27 U/L (5-34); Albumin 3.3 g/dL (3.4-4.8); Alkaline Phosphatase 81 U/L (40-150); Anion Gap 11 mmol/L (10-20); BUN (Urea Nitrogen) 12 mg/dL (9.8-20.1); Bilirubin, Total 0.5 mg/dL (0.2-1.2); Calc. Creatinine Clearance 0 mL/min (70-130); Calcium 8.2 mg/dL (7.8-10.44); Carbon Dioxide 31 mmol/L (23-31); Chloride 102 mmol/L (98-107); Estimated GFR-MDRD 85; Globulin 1.6 g/dL (2.4-3.5); Glucose 81 mg/dL (83-110); Magnesium 1.8 mg/dL (1.6-2.6); Potassium 3.9 mmol/L (3.5-5.1); Protein, Total 4.9 g/dL (6.0-8.3); Sodium 140 mmol/L (136-145)
[2018-02-18] MEDS: Levothyroxine Sodium 50 MCG TAB PO SCH (06:14)
[2018-02-18 06:34] LABS: Band 2 % (5-11); Hemoglobin 9.8 g/dL (12.0-16.0); Hypochromia SLIGHT = 6-15 cells (100X) (0-5/hpf); Lymphocytes 28 % (21-51); MDiff Complete? YES; Mean Corpuscular HGB CONC 35.5 g/dL (32.0-36.0); Mean Corpuscular Hemoglobin 30.6 pg (27.0-31.0); Mean Corpuscular Volume 86.1 fL (78.0-98.0); Mean Platelet Volume 7.5 fL (7.4-10.4); Monocytes 5 % (0-10); Neutrophil 65 % (42-75); PLT Morphology Comment Appears Adequate; Platelet Count 141 thou/uL (130-400); RBC Distribution Width 11.9 % (11.5-14.5); Red Blood Cell (RBC) Count 3.19 mill/uL (4.20-5.40); White Blood Cell (WBC) Count 5.4 thou/uL (4.8-10.8)
[2018-02-18] MEDS: Mometasone/Formoterol 120 PUFF INHALER INH SCH ×2 (06:57→18:52)
--- NOTE | 2018-02-18 09:07 | PRG ---
DATE OF SERVICE: 02/18/2018 This morning she is better, apparently not assisting the vent. PHYSICAL EXAMINATION: VITAL SIGNS: Sats are dropping, she is on 2 liters 95, temperature 98, pulse 80 , respirations 15, blood pressure 118/59. CHEST: Chest revealed decreased breath sounds without wheezing. CARDIAC: Normal S1-S2. No gallops. ABDOMEN: Soft, no masses. IMPRESSION: 1. Presumed sepsisUTI. All cultures are negative. 2. Hypoxemia. PLAN: X-ray is being ordered. Otherwise, continue neb treatment and supportive care, p.o. antibiotics. SACHIN
[2018-02-18] MEDS: K-Phos Neutral 250 MG TAB PO SCH ×3 (10:13→16:32)
[2018-02-18] MEDS: Enoxaparin Sodium 40 MG/0.4 ML SYRINGE SC SCH (10:13)
[2018-02-18] MEDS: Famotidine 20 MG TAB PO SCH ×2 (10:14→21:18)
[2018-02-18] MEDS: DULoxetine 60 MG CAP PO SCH (10:14)
[2018-02-18] MEDS: Hydrochlorothiazide 25 MG TAB PO SCH (10:14)
--- NOTE | 2018-02-18 12:13 | RAD ---
CHEST ONE VIEW: History: 72-year-old female with history of follow up pneumonia. FINDINGS: There is minimal cardiomegaly. There is some patchy parenchymal changes in the left lower lobe with s ome left costophrenic angle blunting. Right chest appears stable. IMPRESSION: Persistent parenchymal and pleural changes in the left base showing slight improvement from prior darby dy. No significant new process. POS: DAVID
[2018-02-18 14:18] LABS: Ionized Calcium 4.6 mg/dL (4.5-5.6)
[2018-02-18 14:18] LABS: Ionized Calcium 4.1 mg/dL (4.5-5.6)
--- NOTE | 2018-02-18 21:13 | PDOC.PN ---
- Subjective Encounter Start Date: 02/18/18 Encounter Start Time: 20:50 Subjective: f/u for suspected sepsis from UTI source with tillman cultures all negative. -: Receiving Levaquin and remains afebrile. Feeling much better today with -: good appetite. - Objective MAR Reviewed: Yes Vital Signs & Weight: Vital Signs (12 hours) Temp Pulse Resp BP Pulse Ox 02/18/18 20:15 98.0 F 85 20 129/63 90 L 02/18/18 18:51 88 14 94 L 02/18/18 16:00 99.2 F 83 16 108/56 L 90 L 02/18/18 13:31 97.9 F 76 16 117/58 L 95 02/18/18 13:20 97.9 F 76 16 95 02/18/18 12:00 98.6 F 79 22 H 143/69 H 92 L Weight Weight 135 lb 5.821 oz I&O: 02/17/18 02/18/18 02/19/18 06:59 06:59 06:59 Intake Total 1970 1220 540 Output Total 3725 2200 Balance -1755 -980 540 Result Diagrams: 02/18/18 04:32 02/18/18 04:32 Additional Labs: Microbiology 02/14/18 20:01 Stool Stool Lactoferrin - Final 02/14/18 20:01 Stool Stool Culture - Final 02/14/18 20:01 Stool Escherichia coli 0157 Culture - Final 02/14/18 20:01 Stool Rapid Parasite Screen - Final 02/14/18 20:01 Stool Campylobacter Antigen Assay - Final 02/14/18 20:01 Stool Shiga Toxin Test - Final 02/14/18 20:01 Stool C. difficile GDH Antigen & Toxins - Final 02/13/18 10:56 Urine Straight Catheter Urine Culture - Final NO GROWTH AT 48 HOURS 02/13/18 10:36 Venous blood - Left Hand Blood Culture - Final NO GROWTH IN 5 DAYS 02/13/18 10:27 Venous blood - Left Arm Blood Culture - Final NO GROWTH IN 5 DAYS Laboratory Tests 02/17/18 02/17/18 04:20 16:14 Potassium 2.6 L* 2.8 L* Radiology Reviewed by me: Yes (PCXR - patchy changes in LLL) EKG Reviewed by me: Yes (Tele - SR) Phys Exam - Physical Examination Constitutional: NAD HEENT: PERRLA, sclera anicteric, oral pharynx no lesions Neck: no nodes, no JVD, supple, full ROM Respiratory: no wheezing, no rales, no rhonchi, clear to auscultation bilateral S1, S2 Cardiovascular: RRR, no significant murmur, no rub, gallop Gastrointestinal: soft, non-tender, no distention, positive bowel sounds Musculoskeletal: no edema, pulses present Neurological: non-focal, normal sensation, moves all 4 limbs Psychiatric: normal affect, A&O x 3 Skin: no rash, normal turgor, cap refill <2 seconds Dx/Plan (1) UTI (urinary tract infection) Status: Acute Comment: Suspected without identifiable organism, continue Levaquin (2) Hypokalemia Code(s): E87.6 - HYPOKALEMIA Status: Acute Comment: Resolved with KCL replacement (3) Hypothyroidism Code(s): E03.9 - HYPOTHYROIDISM, UNSPECIFIED Status: Chronic Comment: Continue Levothyroxine (4) Sepsis Code(s): A41.9 - SEPSIS, UNSPECIFIED ORGANISM Status: Resolved Comment: Suspected but no identified organism, resolved (5) Pneumonia Code(s): J18.9 - PNEUMONIA, UNSPECIFIED ORGANISM Status: Ruled-out Comment: ? LLL infiltrate, continue Levaquin 750mg daily - Plan plan discussed w/ family, continue antibiotics, PT/OT, social sciences chair, respiratory therapy, out of bed/ambulate, DVT proph w/SCDs Stable overall -: Continue Levaquin 750mg daily -: Duonebs q4h prn -: OOB/ambulate -: KCL replacement * AM lab: CMP, CBC, Mg++ * Likely home in am
[2018-02-18] MEDS: Gabapentin 300 MG CAP PO SCH (21:18)
[2018-02-18] MEDS: clonazePAM 0.5 MG TAB PO SCH (21:19)
[2018-02-19 05:56] LABS: #Monocytes 0.5 thou/uL (0.11-0.59); #Neutrophils 2.6 thou/uL (1.40-6.50); %Basophils 0.5 % (0.0-1.0); %Eosinophils 0.3 % (0.0-10.0); %Lymphocytes 38.6 % (21.0-51.0); %Monocytes 8.8 % (0.0-10.0); %Neutrophils 51.7 % (42.0-75.0); Hemoglobin 10.1 g/dL (12.0-16.0); Mean Corpuscular HGB CONC 34.6 g/dL (32.0-36.0); Mean Corpuscular Hemoglobin 30.3 pg (27.0-31.0); Mean Corpuscular Volume 87.4 fL (78.0-98.0); Mean Platelet Volume 7.3 fL (7.4-10.4); Platelet Count 162 thou/uL (130-400); RBC Distribution Width 11.9 % (11.5-14.5); Red Blood Cell (RBC) Count 3.32 mill/uL (4.20-5.40); White Blood Cell (WBC) Count 5.1 thou/uL (4.8-10.8)
[2018-02-19 06:12] LABS: ALT (SGPT) 130 U/L (8-55); AST (SGOT) 18 U/L (5-34); Albumin 3.3 g/dL (3.4-4.8); Alkaline Phosphatase 79 U/L (40-150); Anion Gap 11 mmol/L (10-20); BUN (Urea Nitrogen) 14 mg/dL (9.8-20.1); Bilirubin, Total 0.4 mg/dL (0.2-1.2); Calc. Creatinine Clearance 74 mL/min (70-130); Carbon Dioxide 32 mmol/L (23-31); Chloride 101 mmol/L (98-107); Estimated GFR-MDRD 85; Globulin 1.8 g/dL (2.4-3.5); Glucose 92 mg/dL (83-110); Magnesium 1.8 mg/dL (1.6-2.6); Potassium 3.7 mmol/L (3.5-5.1); Protein, Total 5.1 g/dL (6.0-8.3); Sodium 140 mmol/L (136-145)
[2018-02-19] MEDS: Levothyroxine Sodium 50 MCG TAB PO SCH (06:19)
[2018-02-19] MEDS: Mometasone/Formoterol 120 PUFF INHALER INH SCH (06:32)
[2018-02-19] MEDS: DULoxetine 60 MG CAP PO SCH (08:23)
[2018-02-19] MEDS: K-Phos Neutral 250 MG TAB PO SCH ×2 (08:24→13:21)
[2018-02-19] MEDS: Hydrochlorothiazide 25 MG TAB PO SCH (08:24)
[2018-02-19] MEDS: Enoxaparin Sodium 40 MG/0.4 ML SYRINGE SC SCH (08:24)
[2018-02-19] MEDS: Famotidine 20 MG TAB PO SCH (08:24)
[2018-02-19] MEDS: Acetaminophen 325 MG TAB PO PRN (08:33)
--- NOTE | 2018-02-19 10:08 | PRG ---
DATE OF SERVICE: 02/19/2018 SUBJECTIVE: This morning, she is doing better. She is no longer short of breath and no longer wheez ing. Hypotension resolved. OBJECTIVE: VITAL SIGNS: Blood pressure 140/74, sats are ____ on room air, respiration 18, temperature 98. CHEST: No wheezing. CARDIAC: Normal S1, S2. No gallops. ABDOMEN: Soft, no masses. LABORATORY DATA: Electrolytes are normal. IMPRESSION: Presumed urinary tract infection with sepsis, resolved ____. PLAN: Pulmonary will follow at a distance. Discharge home on present pulmonary medications. Call i f needed.
[2018-02-19 12:13] VITALS: BP 117/69; TEMP 98.9
--- NOTE | 2018-02-19 22:42 | DIS ---
DATE OF ADMISSION: 02/13/2018 DATE OF DISCHARGE: 02/19/2018 DISCHARGE DIAGNOSES: 1. Status post sepsis, suspected secondary to urinary tract infection. 2. Urinary tract infection with Enterococcus species. 3. Hypokalemia, resolving. 4. Hypothyroidism, stable. 5. Left lower lobe pneumonia, suspected gram positive cocci. 6. Transaminitis secondary to #1, resolving. CONSULTATIONS: Dr. Campbell with Pulmonology Service. PERTINENT LABORATORY AND X-RAY FINDINGS: Potassium ranged between 2.6-3.9. Lactic acid level ranged between 4.9-6.3, phosphorus level ranged between 1.9-2.2. Magnesium level ranged between 1.6-1.9, A ST ranged between 18 to 584. ALT ranged between 130-671. BNP 308. CBC showed a white blood cell co unt ranged between 3.2-9.2, hemoglobin ranged between 9.7-14.4. Blood cultures x2 from 02/13/2018 sh owed no growth at 5 days. Urine culture dated 02/13/2018 showed no growth at 48 hours. Stool cultur e dated 02/14/2018 negative. C. difficile antigen and toxin dated 02/14/2018 negative. Stool lactof anne marie 02/14/2018 negative. Giardia and Cryptosporidium negative 02/15/2018. Portable chest x-ray da corrie 02/13/2018 showed poor inspiratory effort with blunting of the costophrenic angles and increased markings in bilateral lung bases. CT of the abdomen and pelvis dated 02/13/2018 showed bilateral non obstructing renal calculi. No evidence of obstructive uropathy. Moderate diverticular disease of th e sigmoid colon without active inflammation. Portable chest x-ray dated 02/15/2018 showed interstiti al densities in the left mid lung zone and left lung base. Abdominal ultrasound dated 02/16/2018 davina wed bilateral pleural effusions, right greater than left. Normal sonographic appearance of the liver . HOSPITAL COURSE: The patient was admitted to the intermediate care unit after initially presenting w ith fever, dysuria, vomiting, and myalgias. The patient underwent extensive evaluation and was noted meeting sepsis criteria with tachycardia, temperature over 101 degrees Fahrenheit, hypotension with associated bandemia and lactic acidosis. The patient was placed on aggressive IV fluid hydration and placed on broad spectrum IV antibiotic therapy. The patient apparently had a recent urine culture p erformed at an outside facility showing Enterococcus faecalis with sensitivities to Levaquin, linezol id, Macrobid, penicillin, tetracycline and vancomycin. The patient remained on broad spectrum antibi otic therapy and given aggressive supportive measures. The patient was slow to clinically improve; h owever, did show improving trajectory and stabilization of vital signs with vancomycin and meropenem. The patient transitioned to [facility] and transferred to the telemetry unit for further evaluation a nd monitoring. The patient received electrolyte replacement due to hypokalemia and serial monitoring of renal function showed overall stable values. The patient received general pulmonary supportive m easures including bronchodilator therapy and Dulera. The patient was noted with mild infiltrate in t he left lower lung zone concerning for early pneumonia. Final portable chest x-ray imaging on 2017 showed overall improving and resolving infiltrate. The patient continued to clinically improve, tolerating regular oral intake, ambulating without assistance or difficulty and stable vital signs w ere noted. I have examined the patient at the time of discharge and discussed followup instructions and disposition planning. The patient and family verbalize understanding and agreement and ready for discharge on 02/19/2018. DISCHARGE MEDICATIONS: 1. Levaquin 750 mg 1 tab p.o. daily x5 days. 2. Lipitor 40 mg 1 tab p.o. daily. 3. Azelastine 137 mcg 2 puffs intranasally b.i.d. 4. Klonopin 0.75 mg p.o. at bedtime. 5. Duloxetine 60 mg p.o. daily. 6. Gabapentin 600 mg p.o. at bedtime. 7. Hydrochlorothiazide 25 mg p.o. daily. 8. Juliaetta 7.5/325 mg 1 tab p.o. q.6 hours p.r.n. pain. 9. Levothyroxine 50 mcg p.o. daily. 10. Dulera 2 puffs inhaled b.i.d. 11. Omeprazole 40 mg p.o. daily. 12. Imitrex 100 mg p.o. q. 2 hours p.r.n. headache. FOLLOWUP: The patient will follow up with her primary care provider, Dr. Sanjeev Ashby within 7 days of discharge. The patient will follow up with Dr. Luis Senior with Urology Service and to call his o ffice for appointment time and date. CONDITION ON DISCHARGE: Stable. ACTIVITY: Ad chantal. DIET: Regular. CODE STATUS: FULL. DISPOSITION: Home on 02/19/2018. Total time preparing and coordinating discharge 36 minutes.
[2018-02-20 09:18] LABS: Ionized Calcium 5.2 mg/dL (4.5-5.6)
== END 2018-02-19 14:31 | disposition home or self-care (01) | DRG 871 ==
LOC: ERS 10:02 → 2SE 14:09 → IMCU/EMU 14:14 → 2SE 02-18 13:06
PROVIDERS: ADMIT Internal Medicine; ATTEND Internal Medicine
DX: A41.9 Sepsis, unspecified organism (principal); J15.6 Pneumonia due to other Gram-negative bacteria; N39.0 Urinary tract infection, site not specified; E87.1 Hypo-osmolality and hyponatremia; N17.9 Acute kidney failure, unspecified; R65.20 Severe sepsis without septic shock; E87.6 Hypokalemia; N20.0 Calculus of kidney; R09.02 Hypoxemia; G89.29 Other chronic pain; E78.5 Hyperlipidemia, unspecified; G62.9 Polyneuropathy, unspecified; B95.2 Enterococcus as the cause of diseases classified elsewhere; D69.6 Thrombocytopenia, unspecified; E83.51 Hypocalcemia; E03.9 Hypothyroidism, unspecified; K57.90 Diverticulosis of intestine, part unspecified, without perforation or abscess without bleeding; R74.0 Nonspecific elevation of levels of transaminase and lactic acid dehydrogenase [LDH]; R19.7 Diarrhea, unspecified; F41.8 Other specified anxiety disorders; Z88.5 Allergy status to narcotic agent; Z88.1 Allergy status to other antibiotic agents; Z88.0 Allergy status to penicillin
CPT/HCPCS: 36415; 36416; 51701; 71045; 74176; 76700; 80053; 81003; 81015; 82330; 82533; 82553; 83605; 83630; 83735; 83880; 84100; 84484; 85025; 87040; 87045; 87046; 87081; 87086; 87324; 87328; 87329; 87449; 87899; 93005; 94640; 96361; 96365; 96367; 99213; A4216; A4353; G0463; G8978-GP-CJ; G8979-GP-CJ; G8980-GP-CJ; J0696; J1580; J1650; J1720; J1940; J2185; J3370; J3411; J3480; J7050; J7620; P9045

== ENCOUNTER 2018-04-01 14:47 | Outpatient (CLI) | payer MEDICARE | END 2018-04-01 14:48 | disposition home or self-care (01) | LOC: BICRAD 14:47 | PROVIDERS: ATTEND Internal Medicine Gastroenterology | DX: R10.13 Epigastric pain (principal); R14.0 Abdominal distension (gaseous); Z87.440 Personal history of urinary (tract) infections | CPT/HCPCS: 36415; 74022; 80053; 83690; 85025 ==

== ENCOUNTER 2018-08-06 13:37 | Outpatient (CLI) | payer MEDICARE ==
--- NOTE | 2018-08-06 15:20 | BD ---
DEXA SCAN: INDICATIONS: Osteoporosis screening. COMPARISON: 06/08/2016 FINDINGS: LUMBAR SPINE BMD (g/cm2) T-SCORE Z-SCORE L1 0.750 -2.2 -0.2 L2 0.890 -1.3 0.9 L3 0.854 -2.1 0.2 L4 0.831 -2.1 0.3 L1-L4 0.832 -2.0 0.3 The bone mineral density of the L1 through L4 region has declined 5.3% from the baseline and slightly improved from the previous 5.5%. LEFT FEMORAL NECK 0.544 -2.7 -0.9 LEFT TOTAL HIP 0.701 -2.0 -0.4 The left femoral neck region bone mineral density has declined 7.1% from baseline but has improved 11 .1% from the previous study. IMPRESSION: Based on WHO criteria, the patient's bone mineral density is considered osteoporotic. The patient is at high risk for fracture. The bone mineral density has declined since 2009 7.1% but has improved f rom the previous in 2016 by 11.1%, which is denoted to be statistically significant. POS: [facility]
== END 2018-08-06 13:38 | disposition home or self-care (01) ==
LOC: BICMAMMO 13:37
PROVIDERS: ATTEND Obstetrics & Gynecology
DX: Z12.31 Encounter for screening mammogram for malignant neoplasm of breast (principal); Z13.820 Encounter for screening for osteoporosis; M81.0 Age-related osteoporosis without current pathological fracture; R92.1 Mammographic calcification found on diagnostic imaging of breast; N64.89 Other specified disorders of breast
CPT/HCPCS: 77063; 77067; 77080

== ENCOUNTER 2019-01-17 07:25 | Outpatient (CLI) | payer MEDICARE ==
--- NOTE | 2019-01-17 09:03 | RAD ---
BARIUM ENEMA: HISTORY: Incomplete colonoscopy FINDINGS: An air contrast barium enema was performed. There is unobstructed retrograde flow of contrast from th e rectum to the cecum with reflux into terminal ileum. There is significant redundancy and tortuosity of the sigmoid colon. Mucosal detail does cannot be satisfactorily evaluated. There are numerous scattered colonic diverticula. No obstructing mass or stricture is identified. IMPRESSION: Colonic diverticulosis.
== END 2019-01-17 07:26 | disposition home or self-care (01) ==
LOC: RAD 07:25
PROVIDERS: ATTEND Internal Medicine Gastroenterology
DX: Z53.9 Procedure and treatment not carried out, unspecified reason (principal)
CPT/HCPCS: 74280

== ENCOUNTER 2020-01-26 09:09 | Outpatient (CLI) | payer MEDICARE ==
--- NOTE | 2020-01-26 09:55 | ULT ---
Bilateral renal ultrasound CLINICAL INDICATION: Nephrolithiasis COMPARISON: Abdominal ultrasound on 02/16/2018 FINDINGS: Right kidney: There is no evidence of a renal mass, renal calculus, or hydronephrosis seen. The right kidney measures 9.2 cm x 4.5 cm. Left kidney: There is a small anechoic structure seen in the region of the left renal pelvis measurin g 1.3 cm likely related to a parapelvic renal cyst. This was not seen on prior exam. Smaller anechoic structure is seen just inferior to this location as well. There is no hydronephrosis or galileo l calculus appreciated.The left kidney measures 9.6 cm x 5.1 cm. Urinary bladder: Normal in appearance. Urinary bladder volume is 88 mL. IMPRESSION: 1. No evidence of hydronephrosis. 2. No obvious renal calculus is seen involving the kidneys bilaterally. 3. Left renal parapelvic cysts.
== END 2020-01-26 09:10 | disposition home or self-care (01) ==
LOC: SCSULT 09:09
PROVIDERS: ATTEND Urology
DX: N20.0 Calculus of kidney (principal); N28.1 Cyst of kidney, acquired
CPT/HCPCS: 76770

== ENCOUNTER 2020-08-30 13:47 | Outpatient (CLI) | payer MEDICARE ==
--- NOTE | 2020-08-30 14:32 | MMO ---
Bilateral MAMMO Bilat Screen [facility]. CLINICAL HISTORY: Patient is 74 years old and is seen for screening. The patient has no family history of breast cancer. The patient has no personal history of cancer. VIEWS: The views performed were: bilateral craniocaudal with tomosynthesis and bilateral mediolateral oblique with tomosynthesis. FILMS COMPARED: The present examination has been compared to a prior imaging study performed at [facility] on 08/06/2018. This study has been interpreted with the assistance of computer-aided detection. MAMMOGRAM FINDINGS: There are scattered fibroglandular densities. Finding 1: There are stable benign appearing calcifications seen in both breasts. Finding 2: There are stable benign appearing densities seen in both breasts. There are no suspicious masses, suspicious calcifications, or new areas of architectural distortion. IMPRESSION: THERE IS NO MAMMOGRAPHIC EVIDENCE OF MALIGNANCY. A ROUTINE FOLLOW-UP MAMMOGRAM IN 1 YEAR IS RECOMMENDED. THE RESULTS OF THIS EXAM WERE SENT TO THE PATIENT. ACR BI-RADS Category 2 - Benign finding MAMMOGRAPHY NOTE: 1. A negative mammogram report should not delay a biopsy if a dominant of clinically suspicious mass is present. 2. Approximately 10% to 15% of breast cancers are not detected by mammography. 3. Adenosis and dense breasts may obscure an underlying neoplasm. Reported by: RODY RAMEY MD Electonically Signed: [id number]
--- NOTE | 2020-08-30 15:11 | BD ---
BONE DENSITOMETRY: Date: 08/30/2020 HISTORY: Postmenopausal screening. FINDINGS: Lumbar Spine: BMD (g/cm2) L1 0.743 T-Score: -2.2 L2 0.823 T-Score: -1.9 L3 0.811 T-Score: -2.5 L4 1.931 T-Score: -1.2 Total 0.839 T-Score: -1.9 Total bone mineral density of 08/06/2018: 0.832 Left Femoral Neck: 0.537 T-Score: -2.8 Total Femur: 0.655 T-Score: -2.4 Total bone mineral density of 08/06/2018: 0.701 IMPRESSION: 1. Bone mineral density of the lumbar spine indicates osteopenia. 2. Bone mineral density of the femoral neck indicates osteoporosis. POS: [facility]
== END 2020-08-30 13:48 | disposition home or self-care (01) ==
LOC: BICMAMMO 13:47
PROVIDERS: ATTEND Student in an Organized Health Care Education/Training Program
DX: Z12.31 Encounter for screening mammogram for malignant neoplasm of breast (principal); Z13.820 Encounter for screening for osteoporosis; Z78.0 Asymptomatic menopausal state; M81.0 Age-related osteoporosis without current pathological fracture; M85.88 Other specified disorders of bone density and structure, other site
CPT/HCPCS: 77063; 77067; 77080

== ENCOUNTER 2021-09-01 11:04 | Outpatient (CLI) | payer MEDICARE ==
[2021-09-01 14:41] LABS: #Lymphocytes 1.5 thou/uL (1.20-3.40); #Monocytes 0.4 thou/uL (0.11-0.59); #Neutrophils 4.5 thou/uL (1.40-6.50); %Eosinophils 0.2 % (0.0-10.0); %Lymphocytes 22.7 % (21.0-51.0); %Monocytes 6.1 % (0.0-10.0); Hemoglobin 13.4 g/dL (12.0-16.0); Mean Corpuscular HGB CONC 32.8 g/dL (32.0-36.0); Mean Corpuscular Hemoglobin 29.2 pg (27.0-31.0); Mean Corpuscular Volume 89.1 fL (78.0-98.0); Mean Platelet Volume 8.6 fL (7.4-10.4); Platelet Count 271 thou/uL (130-400); RBC Distribution Width 11.5 % (11.5-14.5); Red Blood Cell (RBC) Count 4.59 mill/uL (4.20-5.40); White Blood Cell (WBC) Count 6.4 thou/uL (4.8-10.8)
[2021-09-01 15:00] LABS: ALT (SGPT) 15 U/L (8-55); AST (SGOT) 16 U/L (5-34); Albumin 4.6 g/dL (3.4-4.8); Alkaline Phosphatase 72 U/L (40-110); Anion Gap 13 mmol/L (10-20); BUN (Urea Nitrogen) 15 mg/dL (9.8-20.1); Bilirubin, Total 0.7 mg/dL (0.2-1.2); Calc. Creatinine Clearance 0 mL/min (70-130); Calcium 10.1 mg/dL (7.8-10.44); Carbon Dioxide 31 mmol/L (23-31); Chloride 94 mmol/L (98-107); Globulin 2.4 g/dL (2.4-3.5); Glucose 92 mg/dL (83-110); Potassium 3.2 mmol/L (3.5-5.1); Sodium 135 mmol/L (136-145)
[2021-09-01 15:49] LABS: Free T4 (Free Thyroxine) 1.17 ng/dL (0.70-1.48); Thyroid Stimulating Hormone 0.4404 uIU/mL (0.35-4.94)
== END 2021-09-01 11:05 | disposition home or self-care (01) ==
LOC: BICMAMMO 11:04
PROVIDERS: ATTEND Student in an Organized Health Care Education/Training Program
DX: Z12.31 Encounter for screening mammogram for malignant neoplasm of breast (principal); G25.2 Other specified forms of tremor
CPT/HCPCS: 36415; 77063; 77067; 80053; 84439; 84443; 85025

== ENCOUNTER 2021-12-02 14:42 | Outpatient (CLI) | payer MEDICARE | END 2021-12-02 14:43 | disposition home or self-care (01) | LOC: SCSMRI 14:42 | PROVIDERS: ATTEND Anesthesiology Pain Medicine | DX: M47.26 Other spondylosis with radiculopathy, lumbar region (principal); M51.16 Intervertebral disc disorders with radiculopathy, lumbar region; M51.37 Other intervertebral disc degeneration, lumbosacral region; Z98.890 Other specified postprocedural states | CPT/HCPCS: 72158; 82565 ==

== ENCOUNTER 2022-09-19 14:47 | Outpatient (CLI) | payer OTHER | END 2022-09-19 14:48 | disposition home or self-care (01) | LOC: BICMAMMO 14:47 | PROVIDERS: ATTEND Student in an Organized Health Care Education/Training Program | DX: Z12.31 Encounter for screening mammogram for malignant neoplasm of breast (principal); Z13.820 Encounter for screening for osteoporosis; E28.39 Other primary ovarian failure; M85.89 Other specified disorders of bone density and structure, multiple sites; M81.0 Age-related osteoporosis without current pathological fracture; Z91.89 Other specified personal risk factors, not elsewhere classified; Z78.0 Asymptomatic menopausal state | CPT/HCPCS: 77063; 77067; 77080 ==

== ENCOUNTER 2023-06-20 13:06 | Outpatient (CLI) | payer MEDICARE | END 2023-06-20 13:07 | disposition home or self-care (01) | LOC: SCSMRI 13:06 | PROVIDERS: ATTEND Nurse Practitioner Family | DX: M47.22 Other spondylosis with radiculopathy, cervical region (principal); Z98.1 Arthrodesis status | CPT/HCPCS: 72141 ==

== ENCOUNTER 2024-07-26 04:03 | Inpatient (IN) | payer MEDICARE ==
[2024-07-26] MEDS ORDERED: Ondansetron PF 4 MG/2 ML Vial IVP PRN (04:05)
[2024-07-26] MEDS ORDERED: Ondansetron ODT 4 MG TAB PO PRN (04:05)
[2024-07-26] MEDS ORDERED: Acetaminophen 650 MG Suppository PR PRN (04:05)
[2024-07-26] MEDS ORDERED: Calcium Carbonate 500 MG ChewTAB PO PRN (04:05)
[2024-07-26 04:56] LABS: #Basophils Less than 0.03 10x3/uL (0.0-0.2); #Eosinophils Less than 0.03 10x3/uL (0.0-0.7); %Basophils 0.4 % (0.0-1.0); %Lymphocytes 26.6 % (21.0-51.0); %Monocytes 15.3 % (0.0-10.0); %Neutrophils 57.3 % (42.0-75.0); Hematocrit 33.5 % (36.0-47.0); Mean Corpuscular HGB CONC 32.8 g/dL (32.0-36.0); Mean Corpuscular Hemoglobin 28.6 pg (27.0-31.0); Platelet Count 155 10x3/uL (130-400); RBC Distribution Width 12.7 % (11.5-14.5); Red Blood Cell (RBC) Count 3.85 mill/uL (4.20-5.40)
[2024-07-26 05:12] LABS: Anion Gap 13 mmol/L (10-20); BUN (Urea Nitrogen) 13 mg/dL (9.8-20.1); Calc. Creatinine Clearance 0 mL/min (70-130); Carbon Dioxide 21 mmol/L (23-31); Chloride 106 mmol/L (98-107); Estimated GFR 88; Glucose 83 mg/dL (83-110); Potassium 3.3 mmol/L (3.5-5.1); Sodium 137 mmol/L (136-145)
[2024-07-26 05:38] VITALS: BMI 22.4
[2024-07-26] MEDS ORDERED: Electrolyte Replacement Protocol FS SCH (05:43)
[2024-07-26] MEDS: Potassium Chloride 20 MEQ TAB PO SCH (10:00)
[2024-07-26] MEDS: Acetaminophen 325 MG TAB PO PRN (10:00)
[2024-07-26] MEDS: Famotidine 20 MG TAB PO SCH (10:23)
[2024-07-26] MEDS: predniSONE 20 MG TAB PO SCH (10:24)
[2024-07-26] MEDS: Guaifenesin DM 100-10/5 ML UDCUP PO PRN (10:24)
[2024-07-26] MEDS: Famotidine/PF 20 mg/2ml Vial SLOW IVP SCH (10:25)
[2024-07-26] MEDS ORDERED: hydrALAZINE 20 MG/ML VIAL SLOW IVP PRN (12:22)
[2024-07-26] MEDS ORDERED: Electrolyte Replacement Protocol FS PRN (12:45)
[2024-07-26] MEDS: Azithromycin 500 MG in Sodium Chloride 0.9% 250 ML 250 ML IVPB SCH (16:35)
[2024-07-26] MEDS: Atorvastatin Calcium 40 MG TAB PO SCH (20:18)
[2024-07-26] MEDS: Gabapentin 300 MG CAP PO SCH (20:18)
[2024-07-26] MEDS: Losartan 25 MG TAB PO SCH (20:18)
[2024-07-26] MEDS: guaiFENesin/DM ER PO SCH (20:19)
[2024-07-26] MEDS: Primidone 50 MG TAB PO SCH (20:20)
[2024-07-26] MEDS: traZODone HCl 50 MG TAB PO SCH (20:20)
[2024-07-26] MEDS: Albuterol 2.5 MG (3 mL) NEB NEB PRN (22:38)
[2024-07-27 03:57] LABS: #Basophils Less than 0.03 10x3/uL (0.0-0.2); #Eosinophils Less than 0.03 10x3/uL (0.0-0.7); %Lymphocytes 9.6 % (21.0-51.0); %Monocytes 6.7 % (0.0-10.0); %Neutrophils 83.3 % (42.0-75.0); Hematocrit 32.7 % (36.0-47.0); Hemoglobin 10.8 g/dL (12.0-16.0); Mean Corpuscular Hemoglobin 28.4 pg (27.0-31.0); Mean Corpuscular Volume 86.1 fL (78.0-98.0); Platelet Count 183 10x3/uL (130-400); RBC Distribution Width 12.8 % (11.5-14.5)
[2024-07-27 04:22] LABS: ALT (SGPT) 20 U/L (8-55); AST (SGOT) 30 U/L (5-34); Alkaline Phosphatase 69 U/L (40-110); Anion Gap 10 mmol/L (10-20); BUN (Urea Nitrogen) 14 mg/dL (9.8-20.1); Bilirubin, Total 0.5 mg/dL (0.2-1.2); Calc. Creatinine Clearance 62 mL/min (70-130); Calcium 8.4 mg/dL (7.8-10.44); Carbon Dioxide 24 mmol/L (23-31); Chloride 107 mmol/L (98-107); Estimated GFR 88; Globulin 2.8 g/dL (2.4-3.5); Glucose 111 mg/dL (83-110); Potassium 4.3 mmol/L (3.5-5.1); Protein, Total 5.8 g/dL (5.8-8.1); Sodium 137 mmol/L (136-145)
[2024-07-27] MEDS: Levothyroxine Sodium 50 MCG TAB PO SCH (06:24)
[2024-07-27] MEDS: DULoxetine 60 MG CAP PO SCH (08:20)
[2024-07-27] MEDS: predniSONE 20 MG TAB PO SCH (08:20)
[2024-07-27] MEDS: DULoxetine 30 MG CAP PO SCH (08:20)
[2024-07-27] MEDS ORDERED: Iopamidol-370 76% 500 ML MDV (1 ML CHARGE) ONE (09:38)
[2024-07-27] MEDS: Azithromycin 250 MG TAB PO SCH (18:46)
[2024-07-28 04:58] LABS: #Basophils Less than 0.03 10x3/uL (0.0-0.2); #Eosinophils Less than 0.03 10x3/uL (0.0-0.7); %Basophils 0.3 % (0.0-1.0); %Monocytes 10.8 % (0.0-10.0); %Neutrophils 65.6 % (42.0-75.0); Hematocrit 33.5 % (36.0-47.0); Hemoglobin 10.8 g/dL (12.0-16.0); Mean Corpuscular HGB CONC 32.2 g/dL (32.0-36.0); Mean Corpuscular Hemoglobin 28.1 pg (27.0-31.0); Mean Corpuscular Volume 87.2 fL (78.0-98.0); Mean Platelet Volume 9.9 fL (7.4-10.4); Platelet Count 187 10x3/uL (130-400); RBC Distribution Width 12.8 % (11.5-14.5); Red Blood Cell (RBC) Count 3.84 mill/uL (4.20-5.40)
[2024-07-28 05:10] LABS: Anion Gap 13 mmol/L (10-20); BUN (Urea Nitrogen) 14 mg/dL (9.8-20.1); Calc. Creatinine Clearance 61 mL/min (70-130); Calcium 8.4 mg/dL (7.8-10.44); Carbon Dioxide 23 mmol/L (23-31); Chloride 107 mmol/L (98-107); Estimated GFR 86; Glucose 77 mg/dL (83-110); Potassium 3.9 mmol/L (3.5-5.1); Sodium 139 mmol/L (136-145)
[2024-07-28 15:34] VITALS: BP 156/68; TEMP 98.3
== END 2024-07-28 20:30 | disposition home or self-care (01) | DRG 153 ==
LOC: 2SE 04:03 → OBSVTOIN 07-27 17:48
PROVIDERS: ADMIT Student in an Organized Health Care Education/Training Program; ATTEND Student in an Organized Health Care Education/Training Program
DX: J06.9 Acute upper respiratory infection, unspecified (principal); J20.9 Acute bronchitis, unspecified; E86.0 Dehydration; E78.5 Hyperlipidemia, unspecified; E03.9 Hypothyroidism, unspecified; I10 Essential (primary) hypertension; G62.9 Polyneuropathy, unspecified; F41.9 Anxiety disorder, unspecified; F32.A Depression, unspecified; Z88.5 Allergy status to narcotic agent; Z88.8 Allergy status to other drugs, medicaments and biological substances; Z88.0 Allergy status to penicillin; Z90.49 Acquired absence of other specified parts of digestive tract; Z90.710 Acquired absence of both cervix and uterus
CPT/HCPCS: 36415; 70450; 71045; 71275; 80048; 80053; 81001; 83605; 83690; 83735; 84484; 85025; 87040; 93005; 94640; 96374; G0378; J0456; J7050; J7512; J7611; Q9967